=== PATIENT | male | born 1950 | race Caucasian/White ===

== ENCOUNTER 2021-05-21 09:30 | Inpatient (IN) | payer MEDICARE, MEDICAID, SELFPAY ==
[2021-05-21] VITALS (22 sets, daily range): BP systolic 139–243; BP diastolic 63–107; PULSE 63–109; RESP 12–18; TEMP 36.5–37.3; O2SAT 90–97; BMI 30.8
--- NOTE | 2021-05-21 09:45 | DI.CT.S_ITS ---
PROCEDURE: CT STROKE INDICATIONS: slurred speech,left side weakness, TECHNIQUE: Noncontrast 4.5 mm thick angled axial sections acquired from the foramen magnum to the vertex, with coronal reformats. For radiation dose reduction, the following was used: automated exposure control, adjustment of mA and/or kV according to patient size. COMPARISON: None. FINDINGS: Image quality: Excellent. CSF spaces: Basal cisterns are patent. No extra-axial fluid collections. The ventricles are symmetric in size and shape. Brain: No intracranial bleeds or masses. There is cerebral volume loss for age, with resultant ventricular and sulcal prominence. There are periventricular and deep white matter chronic small vessel ischemic changes. There is intracranial internal carotid artery atherosclerosis. Skull and face: Calvarium and visualized facial bones appear intact, without suspicious lesions. Sinuses: Visualized sinuses and mastoids are clear. IMPRESSION: 1. No acute intracranial disease process. 2. Findings telephoned to Dr. Rai on May 21, 2021 at 10:09 a.m. This study fulfills neurological imaging criteria for inclusion or exclusion of acute stroke therapies based on available published neurological guidelines. Dictated by: Sarah Carmichael MD, PhD on 05/21/2021 at 10:11 Approved by: Sarah Carmichael MD, PhD on 05/21/2021 at 10:13
--- NOTE | 2021-05-21 09:45 | DI.RAD.S_ITS ---
PROCEDURE: XR CHEST 1V INDICATIONS: Possible stroke TECHNIQUE: One view of the chest was acquired. COMPARISON: None. FINDINGS: Surgical changes and devices: None. Lungs and pleura: Lungs are clear. No pleural effusions or pneumothorax. Mediastinum: Mediastinal contours appear normal. Heart size is normal. Bones and chest wall: No suspicious bony lesions. Overlying soft tissues appear unremarkable. IMPRESSION: No acute cardiopulmonary disease process. Dictated by: Sarah Carmichael MD, PhD on 05/21/2021 at 10:43 Approved by: Sarah Carmichael MD, PhD on 05/21/2021 at 10:44
--- NOTE | 2021-05-21 09:50 | DI.CT.S_ITS ---
PROCEDURE: CT ANGIO HEAD AND NECK INDICATIONS: weakness, slurred speech. TECHNIQUE: After the administration of intravenous contrast, 1 mm thick sections acquired from the aortic arch through the [place] of [place]. Post-contrast 4.5 mm thick sections then re-acquired from the foramen magnum to the vertex. 3-dimensional xegnmnx-kpanlabki-rteqfxvdfn (MIP) and/or volume rendering reformats were acquired of the central intracranial vasculature and neck separately. COMPARISON: [facility], CT, CT STROKE, 05/21/2021, 9:53. FINDINGS: Image quality: Excellent. BRAIN: The ventricular system and cortical sulci demonstrate atrophy, consistent for the patient's stated age. There are areas of hypodensity within the periventricular and subcortical white matter. There is no acute intra-or extra axial fluid collection. No acute hemorrhage, mass lesion or midline shift. Brainstem is unremarkable. Globes are symmetrical. Sinuses are aerated. Osseous structures are intact. HEAD CT ANGIOGRAPHY: Anterior circulation: Intracranial internal carotid arteries are normal in size and flow. The flow within the paired anterior cerebral arteries is normal and symmetric. The flow within the middle cerebral arteries is normal and symmetric. The anterior communicating artery is seen. No aneurysms are seen. Posterior circulation: Visualized portions of the vertebral arteries demonstrate normal caliber, and join to form a normal appearing basilar artery. Flow within the posterior cerebral arteries is normal and symmetric. No aneurysms are seen. Vertebral arteries are codominant. NECK CT ANGIOGRAPHY: The origins of the right common, bilateral external carotid arteries demonstrate no areas of hemodynamically significant stenosis, vascular occlusion or aneurysmal dilation. There is calcification and plaque at the distal aspect of the left common carotid artery measuring approximately 57%. Origin of the proximal left internal carotid artery demonstrates calcifications with approximately 45% narrowing. There is approximately 35-40% narrowing at the origin of the right internal carotid artery. Origins of the left and right vertebral arteries demonstrate no areas of hemodynamically significant stenosis, vascular occlusion or aneurysmal dilation. Aortic arch demonstrates conventional anatomy. Limited, visualized portions of the subclavian vasculature are unremarkable. . IMPRESSION: 1. No acute intracranial process. 2. Moderate atrophy and chronic microvascular ischemic changes. 3. No areas of hemodynamically significant stenosis, vascular occlusion or aneurysmal dilation within the anterior or posterior circulation. 4. Approximate 45% left and 35-40% narrowing at the origin of the left and right internal carotid arteries bilaterally. Approximate 57% narrowing at the distal aspect of the left common carotid artery secondary to plaque. Any quantitative measurements of stenosis were performed using NASCET criteria. Dictated by: Arleen Alegria M.D. on 05/21/2021 at 10:56 Approved by: Arleen Alegria M.D. on 05/21/2021 at 11:15
[2021-05-21 10:04] LABS: Add Manual Diff / Slide Review NO; Basophils Absolute Auto 100 /uL (0-100); Basophils Percent Auto 0.6 % (0-2); Eosinophils Absolute Auto 0 /uL (0-450); Eosinophils Percent Auto 0.5 % (2-4); Hematocrit 45.7 % (41-53); Hemoglobin 15.3 g/dL (13.5-17.5); Lymphocytes Absolute Auto 2200 /uL (1100-4500); Lymphocytes Percent Auto 24.3 % (25-40); Mean Corpuscular HGB Conc 33.4 % (30-36); Mean Corpuscular Hemoglobin 31.8 PG (26-34); Mean Corpuscular Volume 95.2 fL (80-100); Monocytes Absolute Auto 600 /uL (0-900); Monocytes Percent Auto 6.5 % (3-14); Neutrophils Absolute Auto 6100 /uL (1500-7000); Neutrophils Percent Auto 68.1 % (50-75); Platelet Count 232 X10^3/uL (150-400); Red Blood Cell Count 4.81 X10^6/uL (4.5-5.9); Red Cell Distribution Width 12.8 % (11.6-14.8)
[2021-05-21 10:09] LABS: Prothrombin Time 11.2 SECONDS (10.1-12.7)
[2021-05-21 10:12] LABS: PTT Partial Thromboplastin Tim 32 SECONDS (26.4-36.2)
[2021-05-21 10:22] LABS: Alanine Aminotransferase 23 IU/L (<50); Albumin 4.4 g/dL (3.5-5.0); Albumin Globulin Ratio 1.3 (1.0-2.8); Alkaline Phosphatase 90 U/L (38-126); Aspartate Aminotransferase 29 IU/L (17-59); BUN Creatinine Ratio 19.4 (6-22); Bilirubin Total 0.6 mg/dL (0.2-1.3); Blood Urea Nitrogen 13 mg/dL (9-20); Calcium 9.6 mg/dL (8.4-10.2); Carbon Dioxide 23 mmol/L (22-32); Chloride 106 mmol/L (98-107); Creatine Kinase 79 U/L (55-170); Estimated Glomerular Filt Rate > 60.0 mL/min (>60); Globulin 3.4 g/dL (1.7-4.1); Glucose 280 mg/dL (80-110); HEMOLYSIS < 15 (0-50); Potassium 4.2 mmol/L (3.4-5.1); Sodium 137 mmol/L (137-145); Total Protein 7.8 g/dL (6.3-8.2)
[2021-05-21 10:33] LABS: Troponin I < 0.012 ng/mL (0.01-0.034)
--- NOTE | 2021-05-21 10:39 | ED_ITS ---
HPI - Neuro Symptoms/Deficit General Chief Complaint: Neuro Symptoms/Deficit Stated Complaint: NO ENERGY, NO CONTROL OVER LIMBS, SLURRED SPEACH Time Seen by Provider: 05/21/21 09:50 Source: patient Mode of arrival: Wheelchair Limitations: no limitations History of Present Illness HPI Narrative: This is a 70-year-old male who has had difficulty with weakness of his left side for the past week as well as some slurred speech. Patient states last Monday or Monday he noticed that he was having weakness that he describes as generalized but now seems to be mostly left-sided. In the last 1-2 days he has noticed increasingly slurred speech. Patient finally came today and was prompted because he could no longer ambulate on his own. Patient states some that it seems to be more left-sided. He denies any similar symptoms in the past. No headaches, no vision changes, no numbness or tingling. No chest pain or shortness of breath. No nausea or vomiting. No major changes with bowel movements or urination. Patient denies any medical issues but has not had a visit with a physician in at least a few years. He denies any prior surgeries. He denies any allergies. He does smoke tobacco, he drinks 2 alcoholic beers daily and denies any THC or illicit. Patient states he currently lives on a boat in the [facility]. On Anticoagulants: No Related Data Allergies Allergy/AdvReac Type Severity Reaction Status Date / Time No Known Drug Allergies Allergy Verified 05/21/21 09:46 Review of Systems Review of Systems ROS Unobtainable: All systems reviewed & are unremarkable except as noted in HPI and below Hematologic/Lymphatic On Anticoagulants: No Patient History Family History (Updated 05/21/21 @ 17:06 by Lauren Hewitt MD) Father Failed back surgical syndrome Social History household members: none Smoking Status: Never smoker Smoking Status: Unknown if ever smoked alcohol intake frequency: 0-2 drinks per day Substance Use Type: does not use Exam Narrative Exam Narrative: GEN: well nourished, well appearing male, alert and oriented x 3, patient appears to be in mild distress. HEENT: Atraumatic, pupils are equal round reactive to light, extraocular move ments are intact, nares are clear, TMs are clear with no fluid, there is no conjunctival pallor. Throat is clear without any exudates, erythema, tonsillar enlargement or uvular deviation, questionable facial droop. HEART: Regular rate and rhythm without murmur, clicks, rubs. pulses are equal in upper and lower extremities LUNGS:Lungs clear to auscultation, no wheezes, rales, crackles, chest moves symmetrically ABD:bowel sounds normal, soft, non-tender, no guarding, rebound, rigidity, no masses noted, no hepatosplenomegaly :No CVA tenderness MSCL: Non-tender, no muscle atrophy, muscles strength 4/5 upper and lower extremities on left with drift present bilaterally, 5/5 upper and lower on the right. Gait not tested. NEURO:CN 2-12 intact, sensation normal, finger nose finger test normal on right but he does have difficulty in the left, heel velarde test normal on right with mild difficulty on the left. SKIN: No rash, erythema or skin changes. Initial Vital Signs Initial Vital Signs: Vital Signs Temperature 98.4 F 05/21/21 09:40 Pulse Rate 108 H 05/21/21 09:40 Respiratory Rate 12 05/21/21 09:40 Blood Pressure 225/103 H 05/21/21 09:40 Pulse Oximetry 97 05/21/21 09:40 Scores NIH Stroke Scale Level of Conciousness: Alert, keenly responsive Ask month/age: Answers both questions correctly. Open/close eyes, close hand: Performs both tasks correctly Best gaze horizontal: Normal Visual tang: No visual loss Facial palsy: Minor paralysis, flattened nasolabial fold, asymmetry on smiling Left arm drift: Drifts down, not to bed Right arm drift: No drift for full 10 sec Left leg drift: Drifts down, not to bed Right leg drift: No drift for full 5 sec Limb ataxia: Present in two limbs Sensory on face/arms/legs: Normal, no sensory loss Best language: No aphasia, normal Dysarthria: Mild to mod,some slurring Extinction or inattention: No abnormality Total NIH Stroke scale score: 6 Course Orders Ordered: Acetaminophen (Acetaminophen 325 Mg Tablet) 650 mg PO Q6HR PRN PRN Reason: Fever/Mild Pain (1-3) Hydrocodone Bitart/Acetaminophen (Hydrocodone/Acet 5/325 Tablet) 1 tab PO Q4HR PRN PRN Reason: Pain, Moderate (4-6) Aspirin (Aspirin Ec 81 Mg Tablet) 81 mg PO DAILY FOR[facility]LY [facility], [facility]1983 Atorvastatin Calcium (Atorvastatin 20 Mg Tablet) 80 mg PO BEDTIME FOR[facility]LY [facility], 1928[facility]1983 Last Admin: 05/21/21 20:52 Dose: 80 mg Documented by: [email or web address] Bisacodyl (Bisacodyl 10 Mg Supp) 10 mg DC DAILY PRN PRN Reason: Constipation Chlordiazepoxide HCl (Chlordiazepoxide 25 Mg Capsule) 25 mg PO TID PRN PRN Reason: Tremors Clopidogrel Bisulfate (Clopidogrel 75 Mg Tablet) 75 mg PO DAILY [facility], 1928–1983 Docusate Sodium (Docusate 100 Mg Capsule) 100 mg PO BID FOR[facility]LY [facility], 1928[facility]1983 Last Admin: 05/21/21 20:52 Dose: 100 mg Documented by: [email or web address] Enoxaparin Sodium (Enoxaparin 40 Mg/0.4 Ml Syringe) 40 mg SUBCUT DAILY FOR[facility]LY [facility], 1928–1983 Dextrose/Sodium Chloride (Dextrose 5%-0.45% Ns) 1,000 mls @ 100 mls/hr IV CONT FOR[facility], [facility]1983 Last Admin: 05/21/21 17:14 Dose: 100 mls/hr Documented by: [email or web address] Ibuprofen (Ibuprofen 600 Mg Tablet) 600 mg PO Q6HR PRN PRN Reason: Fever/Mild Pain (1-3) Insulin Human Lispro (Insulin Lispro 100 Unit/Ml 3ml Vial) 0 unit SUBCUT [facility]; Protocol Last Admin: 05/21/21 20:51 Dose: Not Given Documented by: [email or web address] Magnesium Hydroxide (Magnesium Hydroxide 30 Ml Udc) 30 ml PO DAILY PRN PRN Reason: Constipation Naloxone HCl (Naloxone 0.4 Mg/Ml Vial) 0.2 mg IV Q2MIN PRN PRN Reason: Opiate Reversal Ondansetron HCl (Ondansetron 4 Mg/2 Ml Inj) 4 mg IV Q8HR PRN PRN Reason: Nausea And Vomiting Discontinued Medications Aspirin (Aspirin 81 Mg Chew Tab) 324 mg PO NOW ONE Stop: 05/21/21 10:55 Last Admin: 05/21/21 11:44 Dose: 324 mg Documented by: KAIT Consultations Consultation #1: Dr. Hewitt, accepts for admission. Patient's hypertensive initially but blood pressure was 170 on recheck so blood pressure control was not initiated. Vital Signs Vital signs: Vital Signs - 8 hr 05/21/21 09:40 Temperature 98.4 F Pulse Rate 108 H Respiratory Rate 12 Blood Pressure 225/103 H Pulse Oximetry 97 MDM - Neuro Symptoms/Deficit Lab Data Result diagrams: 05/21/21 09:55 05/21/21 09:55 Labs: Lab Results 05/21/21 05/21/21 05/21/21 Range/Units 09:55 09:55 09:55 WBC 9.0 (4.5-11.0) X10^3/uL RBC 4.81 (4.5-5.9) X10^6/uL Hgb 15.3 (13.5-17.5) g/dL Hct 45.7 (41-53) % MCV 95.2 (80-100) fL MCH 31.8 (26-34) PG MCHC 33.4 (30-36) % RDW 12.8 (11.6-14.8) % Plt Count 232 (150-400) X10^3/uL Neut % (Auto) 68.1 (50-75) % Lymph % (Auto) 24.3 L (25-40) % Gregg % (Auto) 6.5 (3-14) % Eos % (Auto) 0.5 L (2-4) % Baso % (Auto) 0.6 (0-2) % Neut # (Auto) 6100 (8128-5804) /uL Lymph # (Auto) 2200 (9972-8786) /uL Gregg # (Auto) 600 (0-900) /uL Eos # (Auto) 0 (0-450) /uL Baso # (Auto) 100 (0-100) /uL PT 11.2 (10.1-12.7) SECONDS INR 1.0 (0.9-1.3) APTT 32 (26.4-36.2) SECONDS Sodium 137 (137-145) mmol/L Potassium 4.2 (3.4-5.1) mmol/L Chloride 106 (98-107) mmol/L Carbon Dioxide 23 (22-32) mmol/L BUN 13 (9-20) mg/dL Creatinine 0.67 (0.66-1.25) mg/dL Estimated GFR > 60.0 (>60) mL/min BUN/Creatinine Ratio 19.4 (6-22) Glucose 280 H (80-110) mg/dL Hemoglobin A1c (4.0-6.0) % Calcium 9.6 (8.4-10.2) mg/dL Total Bilirubin 0.6 (0.2-1.3) mg/dL AST 29 (17-59) IU/L ALT 23 (<50) IU/L Alkaline Phosphatase 90 (38-126) U/L Total Creatine Kinase 79 (55-170) U/L CK-MB (CK-2) TNP CK-MB (CK-2) Rel Index TNP Troponin I < 0.012 (0.01-0.034) ng/mL Total Protein 7.8 (6.3-8.2) g/dL Albumin 4.4 (3.5-5.0) g/dL Globulin 3.4 (1.7-4.1) g/dL Albumin/Globulin Ratio 1.3 (1.0-2.8) SARS-CoV-2 (PCR) (Negative) 05/21/21 05/21/21 Range/Units 09:55 10:57 WBC (4.5-11.0) X10^3/uL RBC (4.5-5.9) X10^6/uL Hgb (13.5-17.5) g/dL Hct (41-53) % MCV (80-100) fL MCH (26-34) PG MCHC (30-36) % RDW (11.6-14.8) % Plt Count (150-400) X10^3/uL Neut % (Auto) (50-75) % Lymph % (Auto) (25-40) % Gregg % (Auto) (3-14) % Eos % (Auto) (2-4) % Baso % (Auto) (0-2) % Neut # (Auto) (7834-9330) /uL Lymph # (Auto) (3343-8258) /uL Gregg # (Auto) (0-900) /uL Eos # (Auto) (0-450) /uL Baso # (Auto) (0-100) /uL PT (10.1-12.7) SECONDS INR (0.9-1.3) APTT (26.4-36.2) SECONDS Sodium (137-145) mmol/L Potassium (3.4-5.1) mmol/L Chloride (98-107) mmol/L Carbon Dioxide (22-32) mmol/L BUN (9-20) mg/dL Creatinine (0.66-1.25) mg/dL Estimated GFR (>60) mL/min BUN/Creatinine Ratio (6-22) Glucose (80-110) mg/dL Hemoglobin A1c 8.4 H (4.0-6.0) % Calcium (8.4-10.2) mg/dL Total Bilirubin (0.2-1.3) mg/dL AST (17-59) IU/L ALT (<50) IU/L Alkaline Phosphatase (38-126) U/L Total Creatine Kinase (55-170) U/L CK-MB (CK-2) CK-MB (CK-2) Rel Index Troponin I (0.01-0.034) ng/mL Total Protein (6.3-8.2) g/dL Albumin (3.5-5.0) g/dL Globulin (1.7-4.1) g/dL Albumin/Globulin Ratio (1.0-2.8) SARS-CoV-2 (PCR) Negative (Negative) Point of Care Testing Glucose POC [address] scan - head: Radiologist's Impression: [address] [id number] Scan ReportSigned Patient: Mo PolancoMR#: [id number]: 9Acct:[id number]/Sex: 70 / MDate of Service: 05/21/21Loc: EDAccession Number: [id number] Procedure: CT Stroke Ordering Provider: Ree Rai D.O. PROCEDURE: CT STROKE INDICATIONS: slurred speech,left side weakness, TECHNIQUE: Noncontrast 4.5 mm thick angled axial sections acquired from the foramen magnum to the vertex, with coronal reformats. For radiation dose reduction, the following was used: automated exposure control, adjustment of mA and/or kV according to patient size. COMPARISON: None. FINDINGS: Image quality: Excellent. CSF spaces: Basal cisterns are patent. No extra-axial fluid collections. The ventricles are symmetric in size and shape. Brain: No intracranial bleeds or masses. There is cerebral volume loss for age, with resultant ventricular and sulcal prominence. There are periventricular and deep white matter chronic small vessel ischemic changes. There is intracranial internal carotid artery atherosclerosis. Skull and face: Calvarium and visualized facial bones appear intact, without suspicious lesions. Sinuses: Visualized sinuses and mastoids are clear. IMPRESSION: 1. No acute intracranial disease process. 2. Findings telephoned to Dr. Rai on May 21, 2021 at 10:09 a.m. This study fulfills neurological imaging criteria for inclusion or exclusion of acute stroke therapies based on available published neurological guidelines. Dictated by: Sarah Carmichael MD, PhD on 05/21/2021 at 10:11 Approved by: Sarah Carmichael MD, PhD on 05/21/2021 at 10:13 CTA - brain/neck: Radiologist's Impression: pending. Mo Polanco 70 M [address] [id number] Scan ReportSigned Patient: Mo PolancoMR#: [id number]: 9Acct:[id number]/Sex: 70 / MDate of Service: 05/21/21Loc: [id number] Number: [id number] Procedure: CT angio head and neck Ordering Provider: Ree Rai D.O. PROCEDURE: CT ANGIO HEAD AND NECK INDICATIONS: weakness, slurred speech. TECHNIQUE: After the administration of intravenous contrast, 1 mm thick sections acquired from the aortic arch through the [place] of [place]. Post-contrast 4.5 mm thick sections then re-acquired from the foramen magnum to the vertex. 3-dimensional luowaot-ygpafhflp-kgqkcwosnn (MIP) and/or volume rendering reformats were acquired of the central intracranial vasculature and neck separately. COMPARISON: [facility], CT, CT STROKE, 05/21/2021, 9:53. FINDINGS: Image quality: Excellent. BRAIN: The ventricular system and cortical sulci demonstrate atrophy, consistent for the patient's stated age. There are areas of hypodensity within the periventricular and subcortical white matter. There is no acute intra-or extra axial fluid collection. No acute hemorrhage, mass lesion or midline shift. Brainstem is unremarkable. Globes are symmetrical. Sinuses are aerated. Osseous structures are intact. HEAD CT ANGIOGRAPHY: Anterior circulation: Intracranial internal carotid arteries are normal in size and flow. The flow within the paired anterior cerebral arteries is normal and symmetric. The flow within the middle cerebral arteries is normal and symmetric. The anterior communicating artery is seen. No aneurysms are seen. Posterior circulation: Visualized portions of the vertebral arteries demonstrate normal caliber, and join to form a normal appearing basilar artery. Flow within the posterior cerebral arteries is normal and symmetric. No aneurysms are seen. Vertebral arteries are codominant. NECK CT ANGIOGRAPHY: The origins of the right common, bilateral external carotid arteries demonstrate no areas of hemodynamically significant stenosis, vascular occlusion or aneurysmal dilation. There is calcification and plaque at the distal aspect of the left common carotid artery measuring approximately 57%. Origin of the proximal left internal carotid artery demonstrates calcifications with approximately 45% narrowing. There is approximately 35-40% narrowing at the origin of the right internal carotid artery. Origins of the left and right vertebral arteries demonstrate no areas of hemodynamically significant stenosis, vascular occlusion or aneurysmal dilation. Aortic arch demonstrates conventional anatomy. Limited, visualized portions of the subclavian vasculature are unremarkable. . IMPRESSION: 1. No acute intracranial process. 2. Moderate atrophy and chronic microvascular ischemic changes. 3. No areas of hemodynamically significant stenosis, vascular occlusion or aneurysmal dilation within the anterior or posterior circulation. 4. Approximate 45% left and 35-40% narrowing at the origin of the left and right internal carotid arteries bilaterally. Approximate 57% narrowing at the distal aspect of the left common carotid artery secondary to plaque. Any quantitative measurements of stenosis were performed using NASCET criteria. Dictated by: Arleen Alegria M.D. on 05/21/2021 at 10:56 Approved by: Arleen Alegria M.D. on 05/21/2021 at 11:15 Chest x-ray: Radiologist's Impression: Mo Polanco 70 M [address] [id number] ReportSigned Patient: Mo PolancoMR#: [id number]: 9Acct:[id number]/Sex: 70 / MDate of Service: 05/21/21Loc: EDAccession Number: [id number] Procedure: XR chest 1V Ordering Provider: Ree Rai D.O. PROCEDURE: XR CHEST 1V INDICATIONS: Possible stroke TECHNIQUE: One view of the chest was acquired. COMPARISON: None. FINDINGS: Surgical changes and devices: None. Lungs and pleura: Lungs are clear. No pleural effusions or pneumothorax. Mediastinum: Mediastinal contours appear normal. Heart size is normal. Bones and chest wall: No suspicious bony lesions. Overlying soft tissues appear unremarkable. IMPRESSION: No acute cardiopulmonary disease process. Dictated by: Sarah Carmichael MD, PhD on 05/21/2021 at 10:43 Approved by: Sarah Carmichael MD, PhD on 05/21/2021 at 10:44 ECG Data Attestation: I personally reviewed and interpreted this ECG as follows: Prior ECG tracings: not available for review Interpretation: Sinus rhythm. Left axis deviation. Nonspecific ST change. Rate of 90 DC 168 QRS 86 and QTC of 450. No elevation or ischemic changes appreciated. MDM Narrative Medical decision making narrative: This is a 70-year-old male who comes to the emergency department with complaint of left-sided weakness, as well as dysa rthria that has been progressive. Patient does not appear to be having stuttering symptoms but more likely progressive symptoms with symptoms initiating about a week ago. Patient's initial head CT is negative, his labs show hyperglycemia to 280 but without any electrolyte changes otherwise and no signs of DKA. CT angiography was ordered. Patient is far outside the window for tPA or even IR intervention. Patient was given aspirin 324 mg in the department. He is quite hypertensive upon arrival but on recheck was 170 systolic. I spoke with Dr. Hewitt who accepts for admission. Stroke Core Measures Exclusion Criteria TPA in CVA: Symptom Onset >3 or 4.5 Hours (1 week) Discharge Plan Departure Patient Disposition: Admitted As Inpatient Clinical Impression: Cerebrovascular accident Admit Date/Time: 05/21/21 11:01 Admit Provider: Lauren Hewitt
--- NOTE | 2021-05-21 10:56 | DI.MRI.S_ITS ---
PROCEDURE: MR STROKE Pre- and post-contrast brain MRI, non-contrast brain MR angiogram, pre- and postcontrast neck MR angiogram INDICATIONS: left sided weakness, slurred speech TECHNIQUE: Brain: Noncontrast axial T1 spin echo, axial T2 fast spin echo, sagittal and axial FLAIR, coronal T2 fast spin echo, axial gradient echo, axial diffusion and ADC through the brain. After the administration of contrast, axial 3D VIBE of the cranial vasculature and brain. Brain MRA: Non-contrast 3-D time of flight MR angiogram, with multiple lcypecs-nxoojidvw-tlunrlfwvm (MIP) reformats performed. Neck MRA: Axial and sagittal TruFISP through the neck. Coronal dynamic MR angiogram during administration of contrast in the arterial and venous phases, with 3-dimenstional yzyklbx-tacbkvnud-zvzzomlvhy (MIP) reformats constructed from subtraction images. COMPARISON: [facility], CT, CT ANGIO HEAD AND NECK, 05/21/2021, 9:53. [facility], CT, CT STROKE, 05/21/2021, 9:53. FINDINGS: Image quality: This examination is limited by involuntary motion artifact. BRAIN: CSF spaces: Ventricles are normal in size and shape. Basal cisterns are patent. No extra-axial fluid collections. Brain: There is abnormal diffusion-weighted signal seen involving the right paramedian rupal. Additional, less prominent areas of abnormal diffusion-weighted signal can be seen within both sides of the rupal. There is associated dark signal seen on the ADC map. These areas demonstrate mild increased T2 weighted signal. Note is made of a chronic infarct involving the left aspect of the body of the corpus callosum. No intracranial bleeds or mass effects. Ashley-white matter interface is normal. Brainstem appears normal. Normal intravascular flow voids are present. No abnormal intracranial enhancement. Note is made of age-appropriate brain parenchymal volume loss and chronic small vessel ischemic changes. Skull and face: Calvarial marrow signal is normal. Orbits appear normal. Sinuses: Mild mucosal thickening is seen within the ethmoid air cells. Minimal mucosal thickening is seen elsewhere. No abnormal fluid is seen within the mastoid air cells. BRAIN MR ANGIOGRAM: Anterior circulation: Intracranial internal carotid arteries are normal in size and enhancement. The flow within the paired anterior cerebral arteries is normal and symmetric. The flow within the middle cerebral arteries is normal and symmetric. The anterior communicating artery is seen. No stenoses, occlusions, or aneurysms. Posterior circulation: The visualized portions of the vertebral arteries demonstrate normal caliber, and join to form a normal appearing basilar artery. The flow within the posterior cerebral arteries is normal and symmetric. No stenoses, occlusions, or aneurysms. NECK MR ANGIOGRAM: Carotids: Great vessels demonstrate a conventional anatomy as they arise from the aortic arch. The origins of the common carotid arteries appear patent. The calibers and courses of both common carotid arteries are normal. The bifurcation regions demonstrate atherosclerotic irregularity. There is 30-50% narrowing seen involving the proximal internal carotid arteries on each side. Posterior circulation: There is approximately 50% narrowing seen involving the origins of each vertebral artery. There is and additional approximate 50% narrowing seen involving the proximal left V1 segment. The more distal extracranial vertebral arteries are unremarkable. Miscellaneous: Subclavian arteries appear patent. Pre-contrast images through the neck show no soft tissue abnormalities. 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 Note is made of age-appropriate brain parenchymal volume loss and chronic small vessel ischemic changes. No masses or abnormal enhancement can be seen. BRAIN MR ANGIOGRAM: To the limits of this study with motion artifact, no significant intracranial arterial abnormality is detected. NECK MR ANGIOGRAM: Atherosclerotic irregularity can be seen involving the carotid bifurcations. There is 30-50% narrowing seen involving the proximal internal carotid arteries. Approximately 50% narrowing seen involving each vertebral artery origin. There is an additional approximately 50% narrowing seen involving the proximal left P1 segment. Dictated by: Sloan Cifuentes M.D. on 05/21/2021 at 10:48 Approved by: Sloan Cifuentes M.D. on 05/21/2021 at 10:57
[2021-05-21 11:41] LABS: Bacteria Urine None Seen; RBC Urine None Seen (0-5/HPF); WBC Urine None Seen (0-5/HPF)
[2021-05-21] MEDS: ASPIRIN 81 MG CHEW TAB 324 MG PO (11:44)
[2021-05-21 11:51] LABS: Urine Comments Microscopic Normal
[2021-05-21 11:58] LABS: COVID19 - ADMIT (NP swab/PCR) Negative (Negative)
[2021-05-21 12:04] LABS: UR Morphine/Opiate cutoff 300 Negative (Negative); Ur Creatinine Normal (Normal); Ur Specific Gravity Normal (Normal); Urine Amphetamines Negative (Negative); Urine Barbiturates Negative (Negative); Urine Benzodiazepines Negative (Negative); Urine Cocaine Negative (Negative); Urine MDMA Negative (Negative); Urine Methadone Negative (Negative); Urine Methamphetamines Negative (Negative); Urine Oxycodone Negative (Negative); Urine Phencyclidine Negative (Negative); Urine Tetrahydrocannabinol Negative (Negative); Urine Tricyclic Antidepressant Negative (Negative); Urine pH Normal (Normal)
--- NOTE | 2021-05-21 14:52 | PC.NURSE ---
At 1330 patient arrived from ED via stretcher. Transferred safely to AC bed with 2 person assist. Patient was unsteady. MD made aware of patients arrival to AC. Tele placed on patient and ICU made aware. Patient to remain NPO pending orders. Remains saline locked at this time with PIV in the L AC. Patient is A/O x 3, speech is mumbled but appropriate. Drift but not to bed on both LUE and LLE. Patient able to perform remaining NIH scale tasks without difficulty. Weakness noted in both LLE and LUE. BP remains mildly elevated, HR regular, pulses equal. Lungs CTA, patient is 94-96% on room air. Denies headache, chest pain, dizziness or numbness. Patient instructed to call before getting OOB, patient verbalizes understanding. Bed alarm set. Call light in reach.
--- NOTE | 2021-05-21 16:48 | DI.ECHO.S_ITS ---
[facility] +---------+ [facility] +---------+ : : [address] : : : : [id number] : : : : Phone: [phone]+ Echocardiogram Report + + :Name: COLBY CASTRO Study Date: 05/22/2021 Height: 66 in : :[facility] ReadingLocation: Weight: 191 lb : : Gender: Male BSA: 2.0 m2 : :: 1950 Age: 70 yrs BP: 152/61 mmHg: :Reason For Study: STROKE : :Ordering Physician: DENNY, : :CRISTIAN Performed By: Roosevelt Castrejon : :Referring: CRISTIAN BALDWIN : + + Interpretation Summary The left ventricle is normal in size and wall thickness. Left ventricular systolic function is normal. The ejection fraction is estimated to be 55-60%. There are no focal wall motion abnormalities. Diastolic parameters suggest a relaxation abnormality of the left ventricle, consistent with probable normal filling pressures. The right ventricle is normal in size and function. Pulmonary artery pressures cannot be estimated because of the lack of a measurable TR jet velocity but the IVC suggests a CVP of around 3 mmHg. Both atria are normal in size. There is no Doppler evidence for an interatrial shunt. Injection of contrast documented no interatrial shunt. There is no significant valvular heart disease. The aortic root is normal size. Procedure: A two-dimensional transthoracic echocardiogram with color flow and Doppler was performed. The study quality was technically adequate. There is no prior echocardiogram noted for this patient. A saline contrast injection was performed to assess for cardiac shunting. The patient was in sinus rhythm with heart rates between 69-88 bpm during the exam. Left Ventricle: The left ventricle is normal in size and wall thickness. Left ventricular systolic function is normal. The ejection fraction is estimated to be 55-60%. There are no focal wall motion abnormalities. Diastolic parameters suggest a relaxation abnormality of the left ventricle, consistent with probable normal filling pressures. Right Ventricle: The right ventricle is normal in size and function. Atria: Both atria are normal in size. There is no Doppler evidence for an interatrial shunt. Injection of contrast documented no interatrial shunt. Mitral Valve: The mitral valve is normal in structure and function. There is no mitral regurgitation noted. Aortic Valve: The aortic valve is slightly calcified. There is no aortic valve stenosis. No aortic regurgitation is present. Tricuspid Valve: The tricuspid valve is normal in structure and function. No tricuspid regurgitation. Pulmonary artery pressures cannot be estimated because of the lack of a measurable TR jet velocity but the IVC suggests a CVP of around 3 mmHg. Pulmonic Valve: The pulmonic valve is normal in structure and function. There is no pulmonic valvular regurgitation. There is no significant valvular heart disease. Great Vessels: The aortic root is normal size. The dimensions of the ascending aorta are normal. The IVC is of normal diameter and collapses greater than 50% with a sniff. This suggests a low right atrial pressure of 3 mm Hg. Pericardium/ Pleura There is no pericardial effusion. There is no pleural effusion. MMode/2D Measurements & Calculations LVIDd: 4.7 cm LVOT diam: 2.0 cm LVIDs: 3.0 cm Ao root diam: 3.1 cm FS: 35.9 % IVSd: 0.92 cm LVPWd: 0.89 cm LV campbell. diameter/BSA (cm/m^2): 2.4 LV sys. diameter/BSA (cm/m^2): 1.6 LA A2 area: 17.8 cm2 RA long axis: 4.9 cm LA A4 area: 16.7 cm2 RA area: 14.1 cm2 LA length (vol): 5.5 cm RA vol: 34.2 ml LA vol: 45.3 ml RA : 17.4 ml/m2 LA vol index: 23.1 ml/m2 IVC diam: 1.5 cm TAPSE: 2.3 cm Doppler Measurements & Calculations Ao V2 max: 151.8 cm/sec LVOT Max David: 99.7 cm/sec Ao V2 mean: 100.7 cm/sec LV V1 max P.0 mmHg Ao max P.2 mmHg LV V1 VTI: 20.0 cm Ao mean P.6 mmHg SAHRA(I,D): 2.2 cm2 Ao V2 VTI: 28.0 cm SAHRA(V,D): 2.1 cm2 sev ratio: 0.71 SAHAR indexed to BSA (cm^2/m^2): 1.1 MV E max david: 89.7 cm/sec PA pr(Accel): 53.3 mmHg MV A max david: 112.7 cm/sec MV E/A: 0.80 Med Peak E' David: 7.3 cm/sec E/E' med: 12.3 Lat Peak E' David: 10.9 cm/sec E/E' lat: 8.2 E/e' average: 10.2 MV dec time: 0.28 sec SV(LVOT): 62.6 ml Reading Physician:02:50 PM
--- NOTE | 2021-05-21 16:57 | PM.HP.1 ---
History of Present Illness History of Present Illness Chief complaint: NO ENERGY, NO CONTROL OVER LIMBS, SLURRED SPEACH Narrative: Patient is a 70-year-old male with no prior history of any significant medical problems who was admitted to the hospital for evaluation of a probable stroke. Patient states a week ago he noticed that his left leg was weak. It seemed to get better until last evening. He noticed last evening that his left arm was weak. When he woke up this morning he was unable to move his left arm and also noted difficulty with speech. He has some numbness along the left hand. He has no prior history of stroke. He has no history of hypertension or other prior medical problems. Patient is not currently taking any medications. Patient denies any headache, blurred vision, or double vision. He has no chest pain or shortness of breath. He denies any nausea vomiting or diarrhea. He has no dysuria hematuria or pyuria. The patient was evaluated in the emergency room. He was found to be hypertensive with a blood pressure 166/95 and hyperglycemic with a blood sugar of 280. Imaging in the emergency department revealed head CT which showed no acute intracranial disease, there was moderate atrophy and chronic microvascular ischemic changes. No areas of hemodynamically significant stenosis, vascular occlusion, aneurysmal dilation within the anterior posterior circulation. 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 MRA, reveals a 50% narrowing in each vertebral artery origin. There was a 50% narrowing involving the proximal left P1 segment. There is also at 30-50% narrowing involving the proximal internal carotid arteries. Patient is admitted to the hospital for an subacute pontine infarct. Patient History Family & Social History Family History (Updated 05/21/21 @ 17:06 by Lauren Hewitt MD) Father Failed back surgical syndrome Social History: household members none Safety & Behavioral: Feels Safe in Current Yes Environment Been Physically Hurt or No Threatened By a Person Suicidal Ideation Description None Suicide Plan Description No Plan Tobacco & Substance use: Smoking Status Never smoker alcohol intake frequency 0-2 drinks per day Substance Use Type does not use Meds Home Medications and Allergies Allergies Allergy/AdvReac Type Severity Reaction Status Date / Time No Known Drug Allergies Allergy Verified 05/21/21 09:46 Review of Systems Review of Systems Narrative: 10 point review system is negative Constitutional Comments: Ill-appearing elderly male lying in bed in no obvious distress Eyes Comments: HEENT: Normocephalic atraumatic, extraocular muscles are intact, pupils are equal and reactive to light, sclerae anicteric, mild conjunctival injection ENT Comments: Oropharynx reveals moist mucous membranes, neck is supple, no adenopathy or thyromegaly Cardiovascular Comments: Cardiac exam: Regular rate and rhythm normal S1-S2 with a 2/6 systolic ejection murmur Respiratory Comments: Lungs: Clear to auscultation Gastrointestinal Comments: Abdomen: Protuberant, soft, nontender, nondistended, no hepatosplenomegaly Neurologic Comments: NIH stroke scale score, patient is so awake and responsive, he was able to answer the month and his age, he can squeeze with 1 hand, his extraocular muscles are intact, visual tang are intact, he has a slight left facial palsy, left arm motor drift is about +to right arm 0 left leg +1 right leg 0 minimal limb ataxia +1 sensation is intact patient has some no aphasia, some dysarthria, and no extinction inattention, NIH stroke scale score is 6 Psychiatric Comments: No hallucination Exam Vital Signs (past 8 hours): - 05/21/21 09:40 05/21/21 09:43 05/21/21 09:44 Temperature 98.4 F Pulse Rate 108 H 109 H 104 H Respiratory Rate 12 Blood Pressure 225/103 H 243/107 H Pulse Oximetry 97 96 97 05/21/21 10:07 05/21/21 10:10 05/21/21 10:30 Temperature Pulse Rate 100 H 92 H 82 Respiratory Rate 13 12 Blood Pressure 194/92 H 170/89 H Pulse Oximetry 96 95 94 05/21/21 10:59 05/21/21 11:00 05/21/21 11:40 Temperature Pulse Rate 94 H 101 H Respiratory Rate 18 Blood Pressure 152/89 H Pulse Oximetry 94 95 05/21/21 11:41 05/21/21 11:43 05/21/21 11:45 Temperature Pulse Rate 105 H 92 H 89 Respiratory Rate 14 18 Blood Pressure 197/92 H 197/92 H 180/88 H Pulse Oximetry 95 96 93 05/21/21 12:00 05/21/21 12:10 05/21/21 12:15 Temperature Pulse Rate 78 80 72 Respiratory Rate 15 18 18 Blood Pressure 168/81 H 168/81 H 162/81 H Pulse Oximetry 93 97 93 05/21/21 12:30 05/21/21 12:46 05/21/21 13:00 Temperature Pulse Rate 71 66 65 Respiratory Rate 16 Blood Pressure 160/82 H 177/74 H 151/70 H Pulse Oximetry 95 95 90 L 05/21/21 13:30 Temperature 97.7 F Pulse Rate 90 Respiratory Rate 18 Blood Pressure 166/95 H Pulse Oximetry 96 Oxygen Delivery Method Room Air Oxygen Flow Rate 0 Objective Labs Result Diagrams: 05/21/21 09:55 05/21/21 09:55 Labs: Laboratory Results - last 24 hr 05/21/21 05/21/21 05/21/21 09:55 09:55 09:55 WBC 9.0 RBC 4.81 Hgb 15.3 Hct 45.7 MCV 95.2 MCH 31.8 MCHC 33.4 RDW 12.8 Plt Count 232 Neut % (Auto) 68.1 Lymph % (Auto) 24.3 L Cameron % (Auto) 6.5 Eos % (Auto) 0.5 L Baso % (Auto) 0.6 Neut # (Auto) 6100 Lymph # (Auto) 2200 Cameron # (Auto) 600 Eos # (Auto) 0 Baso # (Auto) 100 PT 11.2 INR 1.0 APTT 32 Sodium 137 Potassium 4.2 Chloride 106 Carbon Dioxide 23 BUN 13 Creatinine 0.67 Estimated GFR > 60.0 BUN/Creatinine Ratio 19.4 Glucose 280 H Calcium 9.6 Total Bilirubin 0.6 AST 29 ALT 23 Alkaline Phosphatase 90 Total Creatine Kinase 79 CK-MB (CK-2) TNP CK-MB (CK-2) Rel Index TNP Troponin I < 0.012 Total Protein 7.8 Albumin 4.4 Globulin 3.4 Albumin/Globulin Ratio 1.3 Urine RBC Urine WBC Urine Bacteria Ur Culture Indicated? Micro UA Comment U Opiates 300ng/mL cut Ur Oxycodone Screen Urine Methadone Screen Ur Barbiturates Screen U Tricyclic Antidepress Ur Phencyclidine Scrn Ur Amphetamines Screen U Methamphetamines Scrn Ur MDMA Scrn (Ecstasy) U Benzodiazepines Scrn Urine Cocaine Screen U Marijuana (THC) Screen SARS-CoV-2 (PCR) 05/21/21 05/21/21 05/21/21 10:57 11:05 11:22 WBC RBC Hgb Hct MCV MCH MCHC RDW Plt Count Neut % (Auto) Lymph % (Auto) Cameron % (Auto) Eos % (Auto) Baso % (Auto) Neut # (Auto) Lymph # (Auto) Cameron # (Auto) Eos # (Auto) Baso # (Auto) PT INR APTT Sodium Potassium Chloride Carbon Dioxide BUN Creatinine Estimated GFR BUN/Creatinine Ratio Glucose Calcium Total Bilirubin AST ALT Alkaline Phosphatase Total Creatine Kinase CK-MB (CK-2) CK-MB (CK-2) Rel Index Troponin I Total Protein Albumin Globulin Albumin/Globulin Ratio Urine RBC None seen Urine WBC None seen Urine Bacteria None seen Ur Culture Indicated? Culture not indicate Micro UA Comment Microscopic normal U Opiates 300ng/mL cut Negative Ur Oxycodone Screen Negative Urine Methadone Screen Negative Ur Barbiturates Screen Negative U Tricyclic Antidepress Negative Ur Phencyclidine Scrn Negative Ur Amphetamines Screen Negative U Methamphetamines Scrn Negative Ur MDMA Scrn (Ecstasy) Negative U Benzodiazepines Scrn Negative Urine Cocaine Screen Negative U Marijuana (THC) Screen Negative SARS-CoV-2 (PCR) Negative Assessment & Plan Assessment & Plan narrative: Impression 1. 70-year-old male admitted to the hospital with left arm left leg weakness in addition to some dysarthria, patient has minimal left facial droop. -MRI findings confirm subacute pontine infarcts -patient is fairly symptomatic both in terms of his arm and speech -he is hypertensive, and hyperglycemic, and untreated -will start the patient on aspirin and Plavix, atorvastatin, Lovenox for DVT prophylax -will obtain cardiac echo with bubble study -will continue telemetry -will obtain PT OT and speech consultation 2. Hypertension -undiagnosed, will allow for purse permissive hypertension for the next 24 hours but anticipate discharging home on antihypertensive 3. Hyperglycemia, question type 2 diabetes -will obtain hemoglobin A1c and start on sliding scale insulin Patient is admitted as an inpatient, he reports he is a full code he does not have an advanced care directive, and states he would like his girlfriend to be his surrogate decision maker Quality VTE Deep Vein Thrombosis/Pulmonary Embolism Present on Admission: No
[2021-05-21] MEDS: DEXTROSE 5%-0.45% NS 1,000 ML 100 ML IV (17:14)
[2021-05-21 18:35] LABS: Hemoglobin A1C% w Est Avg Glu 8.4 % (4.0-6.0)
[2021-05-21] MEDS: ATORVASTATIN 20 MG TABLET 80 MG PO (20:52)
[2021-05-21] MEDS: DOCUSATE 100 MG CAPSULE PO (20:52)
[2021-05-22] VITALS (7 sets, daily range): BP systolic 130–181; BP diastolic 61–78; PULSE 67–74; RESP 15–19; TEMP 36.5–37; O2SAT 95–96
[2021-05-22] MEDS: DEXTROSE 5%-0.45% NS 1,000 ML 100 ML IV (02:57)
--- NOTE | 2021-05-22 06:34 | PC.NURSE ---
Pt. was asleep all shift, CIWA 0, denies any headache, no chest pain & other discomfort. Will monitor.
[2021-05-22 07:02] LABS: Cholesterol 249 mg/dL (140-199); HDL Cholesterol 60 mg/dL (40-60); LDL Cholesterol Calculated 151 mg/dL (<100); Triglycerides 188 mg/dL (35-150)
--- NOTE | 2021-05-22 08:47 | CM.DANOTE ---
Addendum entered by Yareli Chambers R.N. 05/22/21 15:28: Sent referral over to [facility], included therapy notes as well. Addendum entered by Yareli Chambers R.N. 05/22/21 15:15: [facility]. Called [facility] in [place], spoke to Irene in admissions. She stated that she has one bed left for Monday. Faxed her over referral as well. He would be eligible for discharge with Medicare on Monday. Will also send referral to [facility]. Have not yet heard back from [facility]. Addendum entered by Yareli Chambers R.N. 05/22/21 14:10: Klarissa at [facility] stated that they can't accept patient due to not having a radio time salesperson speech therapist available, as well as concerns that patient is living on his boat. Faxed over [facility] current speech and P.T. orders. Will attempt to locate other facilities. Addendum entered by Yareli Chambers R.N. 05/22/21 11:18: O.T. is recommending rehab, possibly acute inpatient rehab. Contacted Issac at [facility] in [place], and stated, they would review. Do not yet have therapy notes in, but went ahead and sent over face sheet, insurance information, H&P, med sheets, as well as vital sign information. Also sent over MRI report. Called Klarissa at [facility] as well, and asked her to review, as back up. Original Note: DCP: Case received, EMR reviewed and met with patient. Introduced self and role. Was able to obtain information from patient regarding his baseline activity status prior to hospitalization, as well as his current living situation. DCP assessment completed with information currently available. Patient is a 70 year old male who admitted yesterday morning to the care of the hospitalist team. PCP: None currently Payer: confirmed: Medicare. Patient came to the hospital via private vehicle secondary to having symptoms of left sided weakness. Patient had been having some difficulty with ambulation. Patient had MRI which noted subacute pontine infarct. Patient has been staying on his boat in [place], but is originally from [place]. He has no provider. Met with patient in his room. He is alert and oriented, was laying in bed. Confirmed with patient that he is independent at his baseline, and that his home is in [place]. He has a significant other named Jania, who lives in [facility]. Confirmed that he has no provider, asked him if he is interested in local provider resources in this area, and he stated, he is. Also, confirmed with patient that he does have Medicare. P: DCP to continue to follow. Will see how he does with the therapy team. Yareli Chambers RN/[employer]
--- NOTE | 2021-05-22 09:10 | PT.IIE ---
Current Diagnoses Cerebral infarction, unspecified (05/21/21) Physical Therapy Inpatient Evaluation/Re-Eval M1 PT/OT-IP Prior Functional Status Start: 05/22/21 13:03 Freq: NEEDED Status: Active Protocol: Document 05/22/21 09:10 AB (Rec: 05/22/21 13:58 AB [email or web address]) Medical Review Prior Functional Status Medical History Reviewed Yes Communication able to make needs known Mobility and Gait pt stated that he is independent with all mobilities and ambulation wtihout AD Social History Household Members none Number of Stairs To Enter/Railing? 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; difficulty in walking Onset Date 05/21/21 Precautions Other Precautions falls M3 PT-IP Subjective Start: 05/22/21 13:03 Freq: NEEDED Status: Active Protocol: Document 05/22/21 09:10 AB (Rec: 05/22/21 13:58 AB [email or web address]) Subjective Physical Therapy Visit Type Type Initial Evaluation Visit Start Time 09:10 Visit Stop Time 09:48 Total Visit Minutes 38 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 Physical Therapy Visit Comments Patient Comments agreeable to do PT; stated that he has to walk to get home M4 PT-IP Mobility and Gait Start: 05/22/21 13:03 Freq: NEEDED Status: Active Protocol: Document 05/22/21 09:10 AB (Rec: 05/22/21 13:58 AB [id number]) PT-Bed Mobility Assessment Rolling Level of Assist Maximal Assistance,2 Person Assistance PT-Transfer Assessment Sit to and From Stand Sit to and from Stand Maximum Assistance,2 Person Assistance,Use of Upper Extremities Equipment Transfer Assistive Device Gait Belt,River Walker Orthotic/Prosthetic Devices or Brace: No Transfers Transfer Destination Chair,Toilet Transfer Technique Stand Step Pivot Transfer Ability Level of Assist Maximum Assistance,2 Person Assistance,Use of Upper Extremities Comments Mobility Comments pt is very impulsive. completed supine to sit max A x 2 and max cues. increase posterior trunk leaning requiring max A for sitting balance. completed sit to stand from EOB max A x 2 and cues. (+) L knee buckling and required assist with stabilization. completed step transfer using hemiwalker max A x 2 and max cues. pt requested to use the toilet. completed sit to stand from the chair max A x 2 and max cues and step transfer using hemiwalker to bedside commode max A and cues. Left pt with OT. Gait Assessment Comments Gait Comments unable at this time PT-Balance Assessment Sitting Balance and Reactions Static Sitting Balance Ability Poor Dynamic Sitting Balance Ability Poor Standing Balance and Reactions Static Standing Balance Ability Poor Dynamic Standing Balance Ability Poor Device Used hemiwalker M5 PT-IP Objective Assessments Start: 05/22/21 13:03 Freq: NEEDED Status: Active Protocol: Document 05/22/21 09:10 AB (Rec: 05/22/21 13:58 AB [email or web address]) Orientation Orientation/Cognition Level of Alertness Alert Orientation Name,Date,Place,Situation Safety Awareness Decreased Safety Awareness Gross Range of Motion Lower Extremity ROM Assessment Within Functional Limits Strength Lower Extremity Strength Assessment Left Impaired Hip 3+/5 Knee 3+/5 Ankle 2-/5 Coordination Assessment Gross Coordination Gross Coordination Impaired M6 PT-IP Treatment Start: 05/22/21 13:03 Freq: NEEDED Status: Active Protocol: Document 05/22/21 09:10 AB (Rec: 05/22/21 13:58 AB [email or web address]) Physical Therapy Treatment Education Education Provided Safety M7 PT-IP Assessment and Plan Start: 05/22/21 13:03 Freq: NEEDED Status: Active Protocol: Document 05/22/21 09:10 AB (Rec: 05/22/21 13:58 AB [email or web address]) PT Summary Assessment and Plan Potential Rehabilitation Potential Fair Status of Condition at Evaluation Evolving Summary Impairments Pain,ROM,Strength,Balance, Coordination,Sensation,Tone, Cognition,Bed Mobility, Transfers,Gait,Activity Tolerance Assessment Summary pt requiring max A x 2 with all mobilities and max cues. pt is very impulsive. pt will require SNF vs acute rehab to improve strength and mobility . Goals Bed Mobility Goal Minimal Assistance Transfer Goal Minimal Assistance Gait Goal Minimal Assistance,River Walker Gait Distance 50 Other Goals improve bed mobility and transfers to CGA using hemiwalker; ambulation CGA 75 ft using hemiwalking Days to Meet Goals 10 Frequency of Treatment Frequency Of Treatment Twice a Day Treatment Plan Physical Therapy Treatment Plan Bed Mobility Training,Transfer Training,Gait Training, Therapeutic Exercise,Balance Retraining,Discharge Planning, Hot or Cold Pack,Neuromuscular Re-ed,Coordination Retraining Precautions Other Precautions falls Recommendations To Nursing Amount of Assist Needed 2 Person Assist Discharge Recommendations PT Discharge Recommendations SNF Rehab,Acute Rehab,SNF vs Acute Rehab Transportation Needs at Discharge Wheelchair/Cabulance
--- NOTE | 2021-05-22 09:28 | PM.PN.1 ---
Subjective Subjective Interval history: The patient is a 70-year-old male who was admitted to the hospital with an acute stroke. Patient developed symptoms a week ago. However the day before admission he developed significant weakness in the left arm with speech abnormalities. MRI of the brain confirmed subacute pontine infarcts, the most significant in the right paramedian rupal. 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 Patient continues to have significant left arm weakness, he also has some speech abnormalities this morning, and some mild left facial droop. Exam Vital Signs (past 8 hours): - 05/22/21 04:05 Temperature 98.6 F Pulse Rate 69 Respiratory Rate 18 Blood Pressure 152/61 H Oxygen Delivery Method Room Air Oxygen Flow Rate 0 Narrative Exam Narrative: Ill-appearing male lying in bed with left facial droop, and slurred speech HENMT Other: Normocephalic atraumatic, extraocular muscles are intact, there is mild left facial droop Resp Other: Lungs are clear to auscultation Cardio Other: Cardiac exam: Regular rate and rhythm normal S1-S2 GI Other: Abdomen soft nontender Neuro Other: Patient with left arm weakness, graded at 3/5 in intensity, he has left facial droop, also with some dysarthria as well. Extrem Other: Extremity no edema Objective Labs Result Diagrams: 05/21/21 09:55 05/21/21 09:55 Labs: Laboratory Results - last 24 hr 05/21/21 05/21/21 05/21/21 09:55 09:55 09:55 WBC 9.0 RBC 4.81 Hgb 15.3 Hct 45.7 MCV 95.2 MCH 31.8 MCHC 33.4 RDW 12.8 Plt Count 232 Neut % (Auto) 68.1 Lymph % (Auto) 24.3 L Johnson % (Auto) 6.5 Eos % (Auto) 0.5 L Baso % (Auto) 0.6 Neut # (Auto) 6100 Lymph # (Auto) 2200 Johnson # (Auto) 600 Eos # (Auto) 0 Baso # (Auto) 100 PT 11.2 INR 1.0 APTT 32 Sodium 137 Potassium 4.2 Chloride 106 Carbon Dioxide 23 BUN 13 Creatinine 0.67 Estimated GFR > 60.0 BUN/Creatinine Ratio 19.4 Glucose 280 H Hemoglobin A1c Calcium 9.6 Total Bilirubin 0.6 AST 29 ALT 23 Alkaline Phosphatase 90 Total Creatine Kinase 79 CK-MB (CK-2) TNP CK-MB (CK-2) Rel Index TNP Troponin I < 0.012 Total Protein 7.8 Albumin 4.4 Globulin 3.4 Albumin/Globulin Ratio 1.3 Triglycerides Cholesterol LDL Cholesterol, Calc HDL Cholesterol Urine RBC Urine WBC Urine Bacteria Ur Culture Indicated? Micro UA Comment U Opiates 300ng/mL cut Ur Oxycodone Screen Urine Methadone Screen Ur Barbiturates Screen U Tricyclic Antidepress Ur Phencyclidine Scrn Ur Amphetamines Screen U Methamphetamines Scrn Ur MDMA Scrn (Ecstasy) U Benzodiazepines Scrn Urine Cocaine Screen U Marijuana (THC) Screen SARS-CoV-2 (PCR) 05/21/21 05/21/21 05/21/21 09:55 10:57 11:05 WBC RBC Hgb Hct MCV MCH MCHC RDW Plt Count Neut % (Auto) Lymph % (Auto) Johnson % (Auto) Eos % (Auto) Baso % (Auto) Neut # (Auto) Lymph # (Auto) Johnson # (Auto) Eos # (Auto) Baso # (Auto) PT INR APTT Sodium Potassium Chloride Carbon Dioxide BUN Creatinine Estimated GFR BUN/Creatinine Ratio Glucose Hemoglobin A1c 8.4 H Calcium Total Bilirubin AST ALT Alkaline Phosphatase Total Creatine Kinase CK-MB (CK-2) CK-MB (CK-2) Rel Index Troponin I Total Protein Albumin Globulin Albumin/Globulin Ratio Triglycerides Cholesterol LDL Cholesterol, Calc HDL Cholesterol Urine RBC Urine WBC Urine Bacteria Ur Culture Indicated? Micro UA Comment U Opiates 300ng/mL cut Negative Ur Oxycodone Screen Negative Urine Methadone Screen Negative Ur Barbiturates Screen Negative U Tricyclic Antidepress Negative Ur Phencyclidine Scrn Negative Ur Amphetamines Screen Negative U Methamphetamines Scrn Negative Ur MDMA Scrn (Ecstasy) Negative U Benzodiazepines Scrn Negative Urine Cocaine Screen Negative U Marijuana (THC) Screen Negative SARS-CoV-2 (PCR) Negative 05/21/21 05/22/21 11:22 06:20 WBC RBC Hgb Hct MCV MCH MCHC RDW Plt Count Neut % (Auto) Lymph % (Auto) Johnson % (Auto) Eos % (Auto) Baso % (Auto) Neut # (Auto) Lymph # (Auto) Johnson # (Auto) Eos # (Auto) Baso # (Auto) PT INR APTT Sodium Potassium Chloride Carbon Dioxide BUN Creatinine Estimated GFR BUN/Creatinine Ratio Glucose Hemoglobin A1c Calcium Total Bilirubin AST ALT Alkaline Phosphatase Total Creatine Kinase CK-MB (CK-2) CK-MB (CK-2) Rel Index Troponin I Total Protein Albumin Globulin Albumin/Globulin Ratio Triglycerides 188 H Cholesterol 249 H LDL Cholesterol, Calc 151 H HDL Cholesterol 60 Urine RBC None seen Urine WBC None seen Urine Bacteria None seen Ur Culture Indicated? Culture not indicate Micro UA Comment Microscopic normal U Opiates 300ng/mL cut Ur Oxycodone Screen Urine Methadone Screen Ur Barbiturates Screen U Tricyclic Antidepress Ur Phencyclidine Scrn Ur Amphetamines Screen U Methamphetamines Scrn Ur MDMA Scrn (Ecstasy) U Benzodiazepines Scrn Urine Cocaine Screen U Marijuana (THC) Screen SARS-CoV-2 (PCR) PFSH Family History (Updated 05/21/21 @ 17:06 by Lauren Hewitt MD) Father Failed back surgical syndrome Social History household members: none Smoking Status: Never smoker Assessment & Plan Assessment & Plan narrative: 70-year-old male admitted to the hospital with a subacute infarct. MRI confirms subacute pontine infarcts most significant in the right paramedian rupal -patient with left face left arm weakness, he has dysarthria -will continue aspirin, Plavix, and statin -patient is also on Lovenox for DVT prophylaxis -will continue PT OT and speech consultation -await cardiac echo results -patient may require acute versus subacute rehab prior to discharge 2. Hypertension poorly controlled -patient was not on medications Per prior to hospitalization -given his infarcts are subacute will start antihypertensive therapy -lisinopril 10 mg daily -will continue to monitor 3. Type 2 diabetes -new diagnosis -hemoglobin A1c is 8.4, will start metformin 500 twice daily -will ask dietary to see for diabetic Education 4. Hyperlipidemia -patient on Lipitor for his stroke -LDL cholesterol markedly elevated at 1:51 a.m. Patient will need PT OT and continued therapies. This will determine whether he is safe for discharge or will need subacute rehab at discharge. Quality VTE Deep Vein Thrombosis/Pulmonary Embolism Present on Admission: No
[2021-05-22] MEDS: ENOXAPARIN 40 MG/0.4 ML SYRINGE SUBCUT (09:30)
[2021-05-22] MEDS: ASPIRIN EC 81 MG TABLET PO (09:30)
[2021-05-22] MEDS: CLOPIDOGREL 75 MG TABLET PO (09:30)
[2021-05-22] MEDS: DOCUSATE 100 MG CAPSULE PO ×2 (09:30→21:46)
[2021-05-22] MEDS: INSULIN LISPRO 100 UNIT/ML 3ML VIAL SUBCUT ×2 (09:30→12:13)
--- NOTE | 2021-05-22 10:04 | OT.IP.EVAL ---
Current Diagnoses Cerebral infarction, unspecified (05/21/21) Occupational Therapy Inpatient Evaluation/Re-Eval M1 PT/OT-IP Prior Functional Status Start: 05/22/21 13:03 Freq: NEEDED Status: Active Protocol: Document 05/22/21 14:44 CGR (Rec: 05/22/21 15:20 CGR [id number]) Medical Review Prior Functional Status Medical History Reviewed Yes Communication Pt is an effective verbal communicator. Mobility and Gait pt stated that he is independent with all mobilities and ambulation without AD Activities of Daily Living and IADL's Pt was IND in all ADLs prior to admit. Social History Household Members none Number of Stairs To Enter/Railing? pt lives on a primarily lives on a boat but stated that sometimes he stays at his girlfriend's house in [place] or in his [place] apartment but he is going to give up his apartment soon. Pt 's brother currently living in the [place] apartment. home set up is regarding [place] apartment: 3rd floor apartment; 5 steps B rails to enter Home Environment High Toilet,Tub/Shower Employment Status Retired M1 PT/OT-IP Prior Functional Status Start: 05/22/21 14:44 Freq: NEEDED Status: Active Protocol: Document 05/22/21 14:44 CGR (Rec: 05/22/21 15:20 CGR [id number]) Medical Review Prior Functional Status Medical History Reviewed Yes Communication Pt is an effective verbal communicator. Mobility and Gait pt stated that he is independent with all mobilities and ambulation without AD Activities of Daily Living and IADL's Pt was IND in all ADLs prior to admit. Social History Household Members none Number of Stairs To Enter/Railing? pt lives on a primarily lives on a boat but stated that sometimes he stays at his girlfriend's house in [place] or in his [place] apartment but he is going to give up his apartment soon. Pt 's brother currently living in the [place] apartment. home set up is regarding [place] apartment: 3rd floor apartment; 5 steps B rails to enter Home Environment High Toilet,Tub/Shower Employment Status Retired M2 OT-IP Current Condition Start: 05/22/21 14:44 Freq: Status: Active Protocol: Document 05/22/21 14:44 CGR (Rec: 05/22/21 15:20 CGR [id number]) Occupational Therapy Current Condition Current Condition Evaluation Date 05/22/21 Treatment Diagnosis subacute pontine infarct, L sided weakness Diagnosis Onset Date 05/21/21 M3 OT- IP Subjective and Pain Start: 05/22/21 14:44 Freq: Status: Active Protocol: Document 05/22/21 14:44 CGR (Rec: 05/22/21 15:20 CGR [id number]) OT- Subjective Occupational Therapy Visit Type Type Initial Evaluation Visit Start Time 09:10 Visit Stop Time 10:04 Total Visit Minutes 54 Notes Partial co-treat with P.T. Occupational Therapy Visit Comments Patient Comments I just need to get back to walking then I will be ok. OT Pain Assessment Pain When Pain Assessed At Rest Pain Present Pain Present Denied Pain M4 OT- IP ADL's Start: 05/22/21 14:44 Freq: Status: Active Protocol: Document 05/22/21 14:44 CGR (Rec: 05/22/21 15:20 CGR [id number]) OT [id number] Comments OT Self-Feeding Comments Not meal time OT ADL-Grooming General Evaluation Grooming Ability Standby Assistance Areas Needing Assistance Face Washing Comments OT Grooming Comments seated in chair OT ADL-Oral Care General Eval Oral Care Ability Moderate Assistance Areas of Assistance Brushing Teeth,Retrieving/Set- Up of Items Comments Oral Care Comments Pt needed assist for education on river techniques for opening tooth paste and putting paste onto the brush. Pt was able to follow instructions with extra time. OT ADL-Dressing General Eval Lower Body Dressing Ability Maximum Assistance Areas Needing Assistance Underpants/Brief OT ADL-Toileting General Evaluation Toileting Ability Maximum Assistance Areas Needing Assistance Manage Clothing,Perform Perineal Hygiene Devices Toileting Assistive Devices Commode Comments OT Toileting Comments Pt stated need for BM. Pt transfered to [facility] with 2 person assist and attempted BM but was unable. OT ADL-Bathing Comments OT Bathing Comments Not performed M5 OT- IP IADL's Start: 05/22/21 14:44 Freq: Status: Active Protocol: Document 05/22/21 14:44 CGR (Rec: 05/22/21 15:20 CGR [id number]) OT-Instrumental Activities of Daily Living Deficits IADL Deficits Identified Deficits Home Safety Awareness Awareness of Need for Assistance at Home Decreased Awareness Ability to Problem Solve Emergency Unable to Problem Solve Situations Home Safety Comments Pt appears to be having trouble understanding his new deficits in regard to his ability to return to his prior level of function. Medication Management Medication Management Comments Concerns for pt's ability to perform safely Money Management Money Management Comments Concerns for pt's ability to perform safely Meal Preparation Meal Preparation Comments Concerns for pt's ability to perform safely Director Report Director Report Comments Concerns for pt's ability to perform safely Driving Driving Comments Concerns for pt's ability to perform safely M6 OT- IP Functional Cognition Start: 05/22/21 14:44 Freq: Status: Active Protocol: Document 05/22/21 14:44 CGR (Rec: 05/22/21 15:20 CGR [id number]) Cognitive Factors Limiting Selfcare Function Cognitive Ability Level of Alertness Alert Patient Orientation Name,Age,Birthday,Month,Date, Year,Day of Week,Place, Situation Attention Span Ability Unable to Focus,Unable to Sustain Attention Ability to Follow Commands Able to Follow One Step Commands with Increased Time, Able to Follow One Step Commands with Repetition Safety Awareness Underestimates Need for Assistance Cognitive Comments Cognitive Assessment Comments Pt would benefit from formal cog assessment. OT- Vision and Hearing OT- Hearing Assessment OT- Hearing Assessment WFL OT- Vision Assessment Visual Acuity WFL Visual Attentiveness WFL Occular Pursuits WFL Visual Convergence WFL M7 OT- IP Mobility and Balance Start: 05/22/21 14:44 Freq: Status: Active Protocol: Document 05/22/21 14:44 CGR (Rec: 05/22/21 15:20 CGR [id number]) OT- Bed Mobility Assessment Rolling Type of Rolling Roll to Right Level of Assistance Maximum Assistance,2 Person Assistance Supine to Sit Supine to Sit Assist Maximum Assistance,2 Person Assistance Scooting Scooting to Edge of Bed Maximum Assistance,2 Person Assistance OT-Transfer Assessment Sit to and From Stand Sit to and from Stand Maximum Assistance,2 Person Assistance Transfers Transfer Ability Maximum Assistance,2 Person Assistance Technique Transfer Destination Bed,Bedside Commode,Chair Transfer Technique Stand Step Pivot Devices Transfer Assistive Devices Gait Belt,River Walker Comments Mobility Comments max x 2 with use of river walker. OT- Balance Assessment Sitting Balance and Reactions Static Sitting Balance Ability Poor Dynamic Sitting Balance Ability Poor M8 OT- IP Objective Assessments Start: 05/22/21 14:44 Freq: Status: Active Protocol: Document 05/22/21 14:44 CGR (Rec: 05/22/21 15:20 CGR [id number]) OT Gross Range of Motion Upper Extremity Range of Motion Assessment Within Functional Limits OT Strength Upper Extremity Strength Assessment Left Impaired Shoulder 2/5 Elbow 2+/5 Forearm 2+/5 Wrist 3-/5 Hand 2+/5 Hand Senior Sales Associate Strength Hand Dominance Right Comments Strength Comments RUE 4+/5 throughout OT- Coordination Assessment Upper Extremity Finger to Nose Test Left UE Impaired Finger Tapping Test Left UE Impaired OT Sensation Assessment Edema Edema Absent M9 OT- IP Assessment and Plan Start: 05/22/21 14:44 Freq: Status: Active Protocol: Document 05/22/21 14:44 CGR (Rec: 05/22/21 15:20 CGR [id number]) OT Summary Assessment and Plan Potential Rehabilitation Potential Good Analytic Complexity at Evaluation High Summary OT Impairments Strength,Balance,Coordination, Functional Cognition, Functional Mobility,Self- Feeding,Grooming,Dressing, Toileting,Bathing,Toilet Transfers,Shower Transfers, Activity Tolerance Progress Towards Goals Slow Progress due to Cognition Assessment Summary Pt presents as a high complexity evaluation s/p admit for L sided weakness. Pt was found to have a subacute potine infarct. Pt is currently requiring a 2 person assist for transfers d/t LLE buckling with weight bearing. 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 Pt will benefit from acute rehab services to address his profound needs. Goals Self-Feeding Goal Independent Grooming Goal Independent Dressing Goal Independent Toileting Goal Independent Bathing Goal Independent Toilet Transfer Goal Independent Shower Transfer Goal Independent Days to Meet Goals 30 Frequency of Treatment Frequency Of Treatment Once a Day Treatment Plan OT Treatment Plan ADL Training,Functional Cognition Training,Functional Mobility,Patient/Family Education,Discharge Planning Other Treatment Recommendations and Next LUE exercises, SLUMS, safe Treatment Focus transfers Discharge Recommendations OT Discharge Recommendations Acute Rehab Transportation Needs at Discharge Wheelchair/Cabulance
[2021-05-22] MEDS: lisinopriL 10 MG TABLET PO (10:15)
--- NOTE | 2021-05-22 12:18 | ST.IPSLE ---
Visit Care Team Role Provider Type Ree Rai DO Emergency Provider Physician Referring Provider Specialty: Emergency Medicine Address: [address] [place] [address], [id number] Email: [email or web address] Lauren Hewitt MD Admit Provider Physician Attending Provider Specialty: Internal Medicine Address: [address] [place] [address], [id number] Email: [email or web address] Current Diagnoses Cerebral infarction, unspecified (05/21/21) Speech-Language Pathology Speech/Language Eval HOSPICE ART THERAPIST Adult Cognitive Linguistic Eval Start: 05/22/21 11:54 Freq: Status: Active Protocol: Document 05/22/21 11:55 LNK (Rec: 05/22/21 12:17 LNK [id number]) Adult Cognitive Linguistic Evaluation Session Time Visit Start Time 10:20 Visit Stop Time 10:50 Total Visit Minutes [address] Hewitt Reason for Referral slurred speech Setting Assessment Location Acute Care Visit Type Note Type Initial evaluation Patient Information Identification Type Name,Wristband Medical History PER H&P: Patient is a 70-year -old male with no prior history of any significant medical problems who was admitted to the hospital for evaluation of a probable stroke. Patient states a week ago he noticed that his left leg was weak. It seemed to get better until last evening. He noticed last evening that his left arm was weak. When he woke up this morning he was unable to move his left arm and also noted difficulty with speech. He has some numbness along the left hand. He has no prior history of stroke. 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 Subjective Patient Report Pt was in bed. Introduced self and purpose. Pt was agreeable for assessment. Assessment Oral Motor Examination Completed Yes Results Pt presented with poor dental hygiene and missing teeth. Left facial weakness, left side of tongue weak. reduced ROM and strength left side. Pt able to puff cheeks against resistance. Tongue strength against weakness diminished. Pt had a noticeable frontal lisp that he said he had always had. Speech rate is fast reducing intelligibility. Intelligibility improves with slower speech rate. Diadochokinetic assessment indicated slower than expected rate for accuracy. Pt was encouraged to speak slowly with purposeful movement of his articulators. Informal Assessment Expressive Language Normal During conversation, thoughts appeared to be scattered Pragmatic Language Normal Yes Speech Impairment(s) Imprecise articulation Cognition Normal No Cognitive Impairment(s) Safety awareness,Impulsivity Formal Assessment Standardized Test/Screener Type [facility] Mental Status ([facility]) Administration Complete Results Pt scored 19/30 on the SLUMS indicating moderate cognitive dysfunction. He was oriented x3, completed mental math correctly, listed 17 animals and remembered 5/5 words presented earlier. Pt's number placement on the clock drawing task was compressed in both the upper left and the lower right areas of the [place]. The clock hands were equal in length, did not originate from the center and did not present with the correct time. Pt answered 1/4 questions correctly after a paragraph was read aloud to him. Findings/Results Language Function Moderately impaired Cognitive Function Moderately impaired Findings Speech therapy is recommended for dysarthria and cognitive function. Pt reports he has a boat he lives on apartment manager, an apartment in [place] that he plans to give up and a girlfriend in [place]. his girl friend reportedly is taking care of her mother. Cognitive Communication Deficits Self-awareness of Cognitive- No awareness Communication Deficits Impact on Functioning Activity Limits/Particip.Rest. Mild: General Tasks and Demands Household Tasks Interpersonal Interactions Safety Risks Mod: Being Left Alone at Home Reacting to Emergency Traveling Alone in Community Prognosis Prognosis Good Plan of Care Speech-Language Treatment Yes Patient/Caregiver Education Described results of evaluation,Patient expressed understanding of evaluation, Patient expressed agreement with goals and treatment plans Short Term Goals Pt will perform OM exercises to increase left side lingual and facial strength and ROM daily. Discharge Recommendations assisted facility, Inpatient rehab facility
--- NOTE | 2021-05-22 15:25 | PT.IPTN ---
Current Diagnoses Cerebral infarction, unspecified (05/21/21) Physical Therapy Treatment Note M2 PT-IP Current Condition Start: 05/22/21 13:03 Freq: NEEDED Status: Active Protocol: Document 05/22/21 09:10 AB (Rec: 05/22/21 13:58 AB [id number]) Physical Therapy Current Condition Current Condition Evaluation Date 05/22/21 Treatment Diagnosis R pontine CVA with L sided weakness; difficulty in walking Onset Date 05/21/21 Precautions Other Precautions falls M3 PT-IP Subjective Start: 05/22/21 13:03 Freq: NEEDED Status: Active Protocol: Document 05/22/21 15:02 SP (Rec: 05/22/21 15:58 SP [id number]) Subjective Physical Therapy Visit Type Type Treatment Note Visit Start Time 15:02 Visit Stop Time 15:25 Total Visit Minutes 23 Number of LINUX SYSTEMS ANALYST Visits 1 Physical Therapy Visit Comments Patient Comments Pt agreeable to working with therapy. Patient Goals Pt agreeable to going to skilled rehab, I think I need to go to rehab to get stronger. Therapy Pain Assessment Pain Present Pain Present Denied Pain M4 PT-IP Mobility and Gait Start: 05/22/21 13:03 Freq: NEEDED Status: Active Protocol: Document 05/22/21 15:02 SP (Rec: 05/22/21 15:58 SP [id number]) PT-Bed Mobility Assessment Supine to Sit Supine to Sit Maximum Assistance,1 Person Assistance,Head of Bed Elevated,Bedrails Scooting Scooting to Edge of Bed Maximum Assistance PT-Transfer Assessment Sit to and From Stand Sit to and from Stand Maximum Assistance,1 Person Assistance,Use of Upper Extremities Equipment Transfer Assistive Device Gait Belt,River Walker Orthotic/Prosthetic Devices or Brace: No Transfers Transfer Destination Chair Transfer Technique Stand Step Pivot Transfer Ability Level of Assist Contact Guard Assistance, Maximum Assistance,2 Person Assistance,Use of Upper Extremities Comments Mobility Comments Pt impulsive requires cues for staff readiness to time mobility for safety. Pt elevated supine>sitting using R bed rail, Min Ax1 for LE repositioning while providing same Max Ax1 for trunk righting and scoot to EOB. Pt able to sit at EOB using RUE while assess vitals SBA, BP 154/78 HR 74. LINUX SYSTEMS ANALYST requested NETWORK ADMIN assist for out of bed mobiltiy. Sit>Stand with cues for pushing from bed then transition to HW Mod A x1, CGA x1, SPT bed>chair with max cues for BLE and HW sequencing , therapist blocked L knee during wB and RLE repositioning due to unsteady/ buckling, improved trunk standing balance when stationary. CUed for full retro step back until BLE touch chair then reach back Min A for slow descent into chair. Sit>Stand Min A x1 with cues proper hand placement, forward gait using HW Mod A x1 with support at anterior L knee prevent buckling with chair follow by NETWORK ADMIN, NETWORK ADMIN provided CG- SBA as directed from LINUX SYSTEMS ANALYST. Pt walked from chair to sink, step pivot and back to chair 20 ft. Pt was seated in chair with chair alarm donned and allneeds in reach before left. Gait Assessment Gait Gait Assistance Required: Moderate Assistance,1 Person Assist Distance (Feet) 20 Able to Maintain Weight Bearing Status Yes During Gait Assistive Devices Assistive Device Gait Belt,River Walker Orthotic/Prosthetic Devices or Brace: No Gait Deviations General Gait Pattern Antalgic,Decreased Stride Length,Decreased Feet Clearance,Lateral Trunk Lean, Step-to Gait Factors Limiting Gait Function Factors Limiting Gait Function Decreased Activity Tolerance, Decreased Strength,Difficulty Following Directions,Limited Range of Motion,Poor Balance, Poor Safety Awareness Comments Gait Comments See mobiltiy comments Stair Climbing Assessment Comments Stair Climbing Comments unable at this time. Will need to assess 5 steps R HR for safe DC home when medically stable and able. PT-Balance Assessment Sitting Balance and Reactions Static Sitting Balance Ability Fair Dynamic Sitting Balance Ability Poor Standing Balance and Reactions Static Standing Balance Ability Poor Dynamic Standing Balance Ability Poor Device Used hemiwalker M5 PT-IP Objective Assessments Start: 05/22/21 13:03 Freq: NEEDED Status: Active Protocol: Document 05/22/21 09:10 AB (Rec: 05/22/21 13:58 AB [id number]) Orientation Orientation/Cognition Level of Alertness Alert Orientation Name,Date,Place,Situation Safety Awareness Decreased Safety Awareness Gross Range of Motion Lower Extremity ROM Assessment Within Functional Limits Strength Lower Extremity Strength Assessment Left Impaired Hip 3+/5 Knee 3+/5 Ankle 2-/5 Coordination Assessment Gross Coordination Gross Coordination Impaired M6 PT-IP Treatment Start: 05/22/21 13:03 Freq: NEEDED Status: Active Protocol: Document 05/22/21 15:02 SP (Rec: 05/22/21 15:58 SP [id number]) Physical Therapy Treatment Education Education Provided Safety M7 PT-IP Assessment and Plan Start: 05/22/21 13:03 Freq: NEEDED Status: Active Protocol: Document 05/22/21 15:02 SP (Rec: 05/22/21 15:58 SP [id number]) PT Summary Assessment and Plan Potential Rehabilitation Potential Fair Status of Condition at Evaluation Evolving Summary Impairments Pain,ROM,Strength,Balance, Coordination,Sensation,Tone, Cognition,Bed Mobility, Transfers,Gait,Activity Tolerance Progress Towards Goals Progressing Toward Goals,Slow Progress due to Medical Issues ,Slow Progress due to Activity Tolerance Assessment Summary Pt required Max A x1 for bed mobility, Max A x1, CGA x1 for transfers and gait w/ chair follow. Pt is impulsive requres cues for safety sequecing BLE and HW and L knee unstable during WB and RLE repositioning requires therapist to block anteriorly for safety. pt will require SNF vs acute rehab to improve strength and mobility. Pt is motivated and be a good candidate for acute rehab this pm tx. Goals Bed Mobility Goal Minimal Assistance Transfer Goal Minimal Assistance Gait Goal Minimal Assistance,River Walker Gait Distance 50 Other Goals improve bed mobility and transfers to CGA using hemiwalker; ambulation CGA 75 ft using hemiwalking Days to Meet Goals 10 Frequency of Treatment Frequency Of Treatment Twice a Day Treatment Plan Physical Therapy Treatment Plan Bed Mobility Training,Transfer Training,Gait Training, Therapeutic Exercise,Balance Retraining,Discharge Planning, Hot or Cold Pack,Neuromuscular Re-ed,Coordination Retraining Other Recommendations and Next Treatment bed mob, transfers, gait usign Focus HW. Precautions Other Precautions falls Recommendations To Nursing Amount of Assist Needed 2 Person Assist Discharge Recommendations PT Discharge Recommendations SNF Rehab,Acute Rehab,SNF vs Acute Rehab Transportation Needs at Discharge Wheelchair/Cabulance
[2021-05-22] MEDS: METFORMIN HCL 500 MG TABLET PO (18:57)
[2021-05-22] MEDS: ATORVASTATIN 20 MG TABLET 80 MG PO ×2 (21:46→21:47)
--- NOTE | 2021-05-22 22:30 | PC.NURSE ---
Report received, care assumed 1530. Pt. alert and oriented x4. Left-sided deficit (weakness), arm worse than leg. Heavy 2-person assist to transfer between chair and bed. Slightly slurred speech. VSS. Denies pain. Assisted with repositioning in bed throughout shift. 0-1 CIWA score throughout shift. Friend Chantelle called. With patient's permission, updated her on patient condition and POC.
[2021-05-23 03:16] VITALS: BP 135/67; PULSE 67; RESP 16; TEMP 36.8; O2SAT 92
[2021-05-23 08:00] VITALS: BP 134/59; PULSE 75; RESP 16; TEMP 36.7; O2SAT 93
--- NOTE | 2021-05-23 08:06 | PM.PN.1 ---
Subjective Subjective Date Patient Seen: 05/23/21 Exam Vital Signs (past 8 hours): - 05/23/21 03:16 Temperature 98.2 F Pulse Rate 67 Respiratory Rate 16 Blood Pressure 135/67 Pulse Oximetry 92 Oxygen Delivery Method Room Air Oxygen Flow Rate 0 Objective Labs Result Diagrams: 05/21/21 09:55 05/21/21 09:55 PFSH Family History (Updated 05/21/21 @ 17:06 by Lauren Hewitt MD) Father Failed back surgical syndrome Social History household members: none Smoking Status: Never smoker Quality VTE Deep Vein Thrombosis/Pulmonary Embolism Present on Admission: No
--- NOTE | 2021-05-23 08:58 | CM.DPC ---
DCP Cont: Checked in with patient this morning, he was laying in bed. Discussed discharge planning, and let him know that this case therapist is working on finding him a rehab facility. 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 He stated, he doesn't think he wants go go back to [place], his brother will be leaving his home soon, and may be renting it out. Let him know that this case therapist may have to expand the search for an accepting facility for him. So far, [facility] is not accepting, [facility] are reviewing as well. Chelsi also received the referral. Will be reaching out to [facility] today. P: DCP to continue to follow, and will work on placement, will expand search to [facility], and will check in with [facility] and Chelsi today. Sarah Pittman is not answering, will also have to check in tomorrow. Yareli Chambers RN/Contact And Service Clerks Supervisor
[2021-05-23] MEDS: ENOXAPARIN 40 MG/0.4 ML SYRINGE SUBCUT (09:05)
[2021-05-23 09:06] VITALS: BP 134/59; PULSE 75
[2021-05-23] MEDS: METFORMIN HCL 500 MG TABLET PO ×2 (09:06→17:13)
[2021-05-23] MEDS: lisinopriL 10 MG TABLET PO (09:06)
[2021-05-23] MEDS: CLOPIDOGREL 75 MG TABLET PO (09:07)
[2021-05-23] MEDS: SODIUM CHLORIDE 0.9% FLUSH 10 ML IV (09:07)
[2021-05-23] MEDS: DOCUSATE 100 MG CAPSULE PO (09:07)
[2021-05-23] MEDS: ASPIRIN EC 81 MG TABLET PO (09:07)
[2021-05-23] MEDS: INSULIN LISPRO 100 UNIT/ML 3ML VIAL SUBCUT ×2 (09:25→12:26)
--- NOTE | 2021-05-23 10:48 | PT.IPTN ---
Current Diagnoses Cerebral infarction, unspecified (05/21/21) Physical Therapy Treatment Note M2 PT-IP Current Condition Start: 05/22/21 13:03 Freq: NEEDED Status: Active Protocol: Document 05/22/21 09:10 AB (Rec: 05/22/21 13:58 AB [id number]) Physical Therapy Current Condition Current Condition Evaluation Date 05/22/21 Treatment Diagnosis R pontine CVA with L sided weakness; difficulty in walking Onset Date 05/21/21 Precautions Other Precautions falls M3 PT-IP Subjective Start: 05/22/21 13:03 Freq: NEEDED Status: Active Protocol: Document 05/23/21 10:48 AW (Rec: 05/23/21 11:46 AW [id number]) Subjective Physical Therapy Visit Type Type Treatment Note Visit Start Time 10:23 Visit Stop Time 10:48 Total Visit Minutes 25 Number of REPROGRAPHICS ASSOCIATE Visits 0 Physical Therapy Visit Comments Patient Comments Pt agreeable to working with therapy. Therapy Pain Assessment Pain Present Pain Present Denied Pain M4 PT-IP Mobility and Gait Start: 05/22/21 13:03 Freq: NEEDED Status: Active Protocol: Document 05/23/21 10:48 AW (Rec: 05/23/21 11:46 AW [id number]) PT-Transfer Assessment Sit to and From Stand Sit to and from Stand Moderate Assistance,Maximum Assistance,1 Person Assistance ,Use of Upper Extremities Equipment Transfer Assistive Device Gait Belt,River Walker Orthotic/Prosthetic Devices or Brace: No Transfers Transfer Destination Bed,Chair Transfer Technique Stand Step Pivot Transfer Ability Level of Assist Maximum Assistance,1 Person Assistance,Use of Upper Extremities Comments Mobility Comments Pt was sitting up in the chair as PT arrived. BP 125/68 HR 92. Pt stood from the chair mod A x 1 and SPT to the bed 2 feet away using HW max A x 1. Max cues required for safe, controlled sit. Pt stood again and practiced weightshifting with HW for support. PT assist required to stabilize left knee buckling/hyperextending. Pt was able to stand mod A x 1 and transfer back to the chair max A x 1 with HW. Pt continues to require max cues for sequencing ambulation with HW. RN arrived with report of HR in the 110's per tele. Pt sat again on the chair. BP 148 /70 HR 102 in sitting. Pt practiced sit to stand x 5 with increasing need for assist with additional reps. Pt was left in the chair with call light and tray table in reach, chair alarm on for safety. Gait Assessment Gait Gait Assistance Required: Moderate Assistance,1 Person Assist Distance (Feet) 5 Assistive Devices Assistive Device Gait Belt,River Walker Orthotic/Prosthetic Devices or Brace: No Gait Deviations General Gait Pattern Ataxic,Decreased Stride Length ,Decreased Feet Clearance, Flexed Trunk,Lateral Trunk Lean,Step-to Gait Factors Limiting Gait Function Factors Limiting Gait Function Decreased Activity Tolerance, Decreased Strength,Difficulty Following Directions,Limited Range of Motion,Poor Balance, Poor Safety Awareness Comments Gait Comments See mobiltiy comments Stair Climbing Assessment Comments Stair Climbing Comments unable at this time. Will need to assess 5 steps R HR for safe DC home when medically stable and able. PT-Balance Assessment Sitting Balance and Reactions Static Sitting Balance Ability Fair Dynamic Sitting Balance Ability Poor Standing Balance and Reactions Static Standing Balance Ability Poor Dynamic Standing Balance Ability Poor Device Used hemiwalker M5 PT-IP Objective Assessments Start: 05/22/21 13:03 Freq: NEEDED Status: Active Protocol: Document 05/22/21 09:10 AB (Rec: 05/22/21 13:58 AB [id number]) Orientation Orientation/Cognition Level of Alertness Alert Orientation Name,Date,Place,Situation Safety Awareness Decreased Safety Awareness Gross Range of Motion Lower Extremity ROM Assessment Within Functional Limits Strength Lower Extremity Strength Assessment Left Impaired Hip 3+/5 Knee 3+/5 Ankle 2-/5 Coordination Assessment Gross Coordination Gross Coordination Impaired M6 PT-IP Treatment Start: 05/22/21 13:03 Freq: NEEDED Status: Active Protocol: Document 05/23/21 10:48 AW (Rec: 05/23/21 11:46 AW [id number]) Physical Therapy Treatment Education Education Provided Safety Other Treatments Other Treatment Performed Pt participated in weight shifting activities EOB for neuro re-ed. Educated pt on joint protection for left shoulder. M7 PT-IP Assessment and Plan Start: 05/22/21 13:03 Freq: NEEDED Status: Active Protocol: Document 05/23/21 10:48 AW (Rec: 05/23/21 11:46 AW [id number]) PT Summary Assessment and Plan Potential Rehabilitation Potential Fair Summary Impairments Pain,ROM,Strength,Balance, Coordination,Sensation,Tone, Cognition,Bed Mobility, Transfers,Gait,Activity Tolerance Progress Towards Goals Progressing Toward Goals,Slow Progress due to Medical Issues ,Slow Progress due to Activity Tolerance Assessment Summary Pt continues to require mod to max A x 1 for safe mobility with HW. He is improving in awareness of his LUE. He requires max cues for sequencing gait with HW. Pt is highly motivated and able to participate in intense daily therapy. He has needs for all rehab disciplines. He is an excellent candidate for acute rehab. Goals Bed Mobility Goal Minimal Assistance Transfer Goal Minimal Assistance Gait Goal Minimal Assistance,River Walker Gait Distance 50 Other Goals improve bed mobility and transfers to CGA using hemiwalker; ambulation CGA 75 ft using hemiwalking Days to Meet Goals 10 Frequency of Treatment Frequency Of Treatment Twice a Day Treatment Plan Physical Therapy Treatment Plan Bed Mobility Training,Transfer Training,Gait Training, Therapeutic Exercise,Balance Retraining,Discharge Planning, Hot or Cold Pack,Neuromuscular Re-ed,Coordination Retraining Other Recommendations and Next Treatment bed mob, transfers, gait using Focus HW. Precautions Other Precautions falls Recommendations To Nursing Amount of Assist Needed 2 Person Assist Discharge Recommendations PT Discharge Recommendations SNF Rehab,Acute Rehab,SNF vs Acute Rehab Transportation Needs at Discharge Wheelchair/Cabulance
[2021-05-23 11:10] VITALS: BP 148/70; PULSE 104; RESP 17; TEMP 36.6; O2SAT 96
--- NOTE | 2021-05-23 11:14 | P.DS_ITS ---
History of Present Illness History of Present Illness Date Patient Seen: 05/23/21 Time Patient Seen: 11:14 Chief complaint: NO ENERGY, NO CONTROL OVER LIMBS, SLURRED SPEACH Narrative: Patient is a 70-year-old male with no prior history of any significant medical problems who was admitted to the hospital for evaluation of a probable stroke. Patient states a week ago he noticed that his left leg was weak. It seemed to get better until last evening. He noticed last evening that his left arm was weak. When he woke up this morning he was unable to move his left arm and also noted difficulty with speech. He has some numbness along the left hand. He has no prior history of stroke. He has no history of hypertension or other prior medical problems. Patient is not currently taking any medications. Patient denies any headache, blurred vision, or double vision. He has no chest pain or shortness of breath. He denies any nausea vomiting or diarrhea. He has no dysuria hematuria or pyuria. The patient was evaluated in the emergency room. He was found to be hypertensive with a blood pressure 166/95 and hyperglycemic with a blood sugar of 280. Imaging in the emergency department revealed head CT which showed no acute intracranial disease, there was moderate atrophy and chronic microvascular ischemic changes. No areas of hemodynamically significant stenosis, vascular occlusion, aneurysmal dilation within the anterior posterior circulation. 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 MRA, reveals a 50% narrowing in each vertebral artery origin. There was a 50% narrowing involving the proximal left P1 segment. There is also at 30-50% narrowing involving the proximal internal carotid arteries. Patient is admitted to the hospital for an subacute pontine infarct. Discharge Providers Provider Date of admission: 05/21/21 11:01 Discharge Date: 05/23/21 Consults: 05/21/21 16:46 Consult to Occupational Therapy Evaluate & Treat Comment: Physician Instructions: Evaluate and treat Consult to Physical Therapy Evaluate & Treat Comment: Physician Instructions: Evaluate and Treat Consult to Speech Therapy Evaluate & Treat Comment: Physician Instructions: Evaluate and treat 05/21/21 16:47 Consult to Discharge Planning Routine Comment: Consult to Occupational Therapy Evaluate & Treat Comment: Physician Instructions: Evaluate and treat Consult to Physical Therapy Evaluate & Treat Comment: Physician Instructions: Evaluate and Treat Consult to Speech Therapy Evaluate & Treat Comment: Physician Instructions: Evaluate and treat 05/22/21 09:35 Consult to Dietitian, Adult Routine Comment: new diabetic Reason For Exam: diabetic education Discharge provider: Edison Frost MD Summary Hospital Course Discharge Diagnosis: 1. 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 Hypertension poorly controlled 3. Type 2 diabetes 4. Hyperlipidemia 5. Alcoholism Hospital Course: 70-year-old male admitted to the hospital with subacute pontine infarcts most significant in the right paramedian rupal -he has left face, left leg and left arm weakness along with dysarthria -no embolic source was found on echo/MR/telemetry. -started on aspirin, Plavix, and Atorvastatin. The Plavix will be stopped after 21 days. -see by PT OT and speech with good cooperation, endurance and recommendation for inpatient rehab. 2. Hypertension poorly controlled -patient was not on medications prior to hospitalization -lisinopril 10 mg daily 3. Type 2 diabetes -new diagnosis -hemoglobin A1c is 8.4, salome start metformin 500 twice daily -carb choice diet, Lispro correctional scale and blood sugar checks. 4. Hyperlipidemia -started on Lipitor for his stroke -LDL cholesterol markedly elevated at 151 5. Alcoholism -Patient does not admit to excessive drinking. However family member called in noted he drinks about 12 beers per day. As such he was on a CIWA protocol. During his 3 days of hospitalization there has been no evidence of withdrawal. -MCV 95. Begin B12 and thiamine daily. . Status at Discharge Cognitive/behavioral status at discharge: at baseline, oriented Functional status at discharge: wheelchair bound Overall status at discharge: patient is not back to baseline Time Spent with Patient Time spent: Greater than 30 minutes Exam Vital Signs (past 8 hours): - 05/23/21 03:16 05/23/21 08:00 05/23/21 09:06 Temperature 98.2 F 98.1 F Pulse Rate 67 75 75 Respiratory Rate 16 16 Blood Pressure 135/67 134/59 L 134/59 L Pulse Oximetry 92 93 05/23/21 11:10 Temperature 98 F Pulse Rate 104 H Respiratory Rate 17 Blood Pressure 148/70 H Pulse Oximetry 96 Oxygen Delivery Method Room Air Oxygen Flow Rate 0 Narrative Exam Narrative: He is alert and oriented x3, in no apparent distress His speech is slow and somewhat slurred He is able to tell me a very coherent and cogent story about the wooden ceiling boat that he lives on. It has quite a history. Heart is regular rate and rhythm without murmur Lungs are clear to auscultation bilaterally Extremities have no ankle edema Neurological exam there is a slight deviation of the tongue to the right His speech is slurred There is no signs of tremor or alcohol withdrawal His left leg strength is 1/5 and the left hand tire design engineer strength is 0/5. He is 5/5 on the right side upper and lower. Objective Labs Result Diagrams: 05/21/21 09:55 05/21/21 09:55 [facility] Family History Father Failed back surgical syndrome Social History household members: none Smoking Status: Never smoker Discharge Plan Discharge Plan Patient Disposition: Xfer Inpatient Rehab Transfer to: [facility], Other Other facility: [facility] Under care of provider: Dr. Valderrama Provider Discharge Comment: F/U with PCP after inpatient rehab Discharge orders & Medications Discharge Orders: Discharge (Order); Ordered 05/23/21 Ordered By: Edison Frost Prescriptions: New hydrocodone-acetaminophen 5-325 mg Tablet 1 tab PO Q4HR PRN (Reason: Pain, Moderate (4-6)) Qty: 10 RF: 0 acetaminophen 325 mg Tablet 650 mg PO Q6HR PRN (Reason: Fever/Mild Pain (1-3)) Qty: 10 RF: 0 aspirin 81 mg Tablet,Delayed Release (Dr/Ec) 81 mg PO DAILY Qty: 30 RF: 0 metformin [Glucophage] 500 mg Tablet 500 mg PO 0800,1700 Qty: 60 RF: 0 ibuprofen 600 mg Tablet 600 mg PO Q6HR PRN (Reason: Fever/Mild Pain (1-3)) Qty: 10 RF: 0 bisacodyl 10 mg Suppository 10 mg NE DAILY PRN (Reason: Constipation) Qty: 12 RF: 0 docusate sodium [DOK] 100 mg Capsule 100 mg PO BID Qty: 60 RF: 0 enoxaparin [Lovenox] 40 mg/0.4 mL Syringe 40 mg SUBCUT DAILY Qty: 4 RF: 0 atorvastatin [Lipitor] 20 mg Tablet 80 mg PO BEDTIME Qty: 30 RF: 0 clopidogrel 75 mg Tablet 75 mg PO DAILY Qty: 30 RF: 0 insulin lispro [Humalog U-100 Insulin] 100 unit/mL Solution 1 - 10 unit SUBCUT ACHS Qty: 10 RF: 0 lisinopril 10 mg Tablet 10 mg PO DAILY Qty: 30 RF: 0 Diet/Activity/Treatments Diet: Low-cholesterol Liquid consistency: Normal/Thin Food texture: Regular [facility] Rehab type: Physical therapy, Occupational therapy and Speech therapy Quality VTE Deep Vein Thrombosis/Pulmonary Embolism Present on Admission: No
--- NOTE | 2021-05-23 11:39 | PT-IP ANOTE ---
[employer] DOCTOR assisted Care [employer] steam [employer] records clerk Yareli when asked, discuss with pt transportation recommendations for safety to SNF today, [facility] preferred but unavailable and not safe with decreased trunk strength for cab ride. Pt verbalized understanding that BLS was only safe option for transportation today to SNF.
--- NOTE | 2021-05-23 12:52 | CM.DPC ---
DCP Cont: Have been in contact with Raffi, admissions liason at [facility]. Sent him updated O.T. notes, for he now has all disciplines. After sending information, and Dr. Frost is hospitalist, and also works with [facility], and has been able to communicate with Raffi, and deemed him eligible for admission to [facility]. Raffi was wanting additional information, was able to obtain patient's social security number for [facility] to ensure that patient has Medicare A&B, which they verified, he does have both. Confirmed one of his medication doses of Librium to ensure that they have the current dose. Transportation was verified with the therapy team that he is not deemed safe to go in a taxi, and [employer] have not been available. Had a discussion with patient regarding safe mode of transportation. Brought in Charlene, physical therapist in to explain that a taxi may not be a safe mode of transportation, since patient is unable to sit up secondary to left sided weakness. Explained to patient that transportation can be expensive, and that he may get a bill. He asked about the amount, and this inventory control planner had to explain that the cost is unknown. He stated, I guess it's ok, if that's the safe way to go. He had a friend who lives locally, come up to visit. Went ahead and called [facility], spoke to [place], and the soonest that they can lease picker patient is between [id number]. Updated Raffi at [facility], and let him know that if they can get a sooner lease picker time, [facility] will call this inventory control planner back, and will let him know. Dr. Frost singed BLS form, and is in agreement that patient is not safe to go via taxi. Asked patient if it would be sufficient to obtain his significant other, Jania's number, to give to Raffi at [facility], so they can discuss a safe discharge plan after their facility for patient. He gave verbal permission to give that out. Patient's goal is to be able to return to his boat at some time, but stated that he may have the option to stay with his girl friend, but she does take care of her mother that has dementia. P: Plan is for patient to discharge to [facility] today. supervisor malted milk time is between [phone]. Have updated white board in main nurses station, and nurse, Evonne, has been updated. Will fax over COVID results when completed. Raffi indicated that they have already seen his medications, and should not need a new print out unless there are changes. No PASSR is needed as well. Obtained a phone number for report to give to Evonne. Yareli Chambers RN/Communications Controller
[2021-05-23 13:48] LABS: COVID19 - ADMIT (NP swab/PCR) Negative (Negative)
[2021-05-23 15:10] VITALS: BP 115/61; PULSE 91; RESP 18; TEMP 36.7
--- NOTE | 2021-05-23 15:26 | PT-IP ANOTE ---
Approached pt for PM treatment. Pt was back in bed and hoping to rest before transfer to acute rehab later this afternoon. Attempted to persuade pt to sit EOB and work on sitting balance but pt stated he needed to conserve his energy.
--- NOTE | 2021-05-23 17:40 | PC.NURSE ---
pt was transported by EMS to specialized rehab facility at [facility], all belongings with pt, vitals stable prior to transport, discharge packet was given to EMS, pt left at 1714.
== END 2021-05-23 17:14 | DRG 65 ==
LOC: ED 10:39 → AC 11:02
PROVIDERS: Family Medicine; Admitting Provider Internal Medicine; Emergency Provider Emergency Medicine; Referring Provider Emergency Medicine; Visit Provider Internal Medicine
DX: I63.9 Cerebral infarction, unspecified (principal); G81.94 Hemiplegia, unspecified affecting left nondominant side; R47.1 Dysarthria and anarthria; F10.20 Alcohol dependence, uncomplicated; E11.9 Type 2 diabetes mellitus without complications; R29.706 NIHSS score 6; Z20.822 Contact with and (suspected) exposure to COVID-19
CPT/HCPCS: 36415; 70450; 70496; 70498; 70548; 70553; 71045; 80053; 80061; 80305; 81003; 81015; 82550; 82962; 83036; 84484; 85025; 85610; 85730; 87077; 87086; 87186; 87635; 92523; 93005; 93306; 97112; 97162; 97167; 97530; 97535; 99285; C9803; J1650; J1815; Q9967